=== PATIENT | male | born 1940 | race Caucasian/White ===

== ENCOUNTER 2018-10-19 12:03 | Emergency (ER) | payer OTHER, SELFPAY ==
[2018-10-19 12:05] VITALS: BP 144/61; PULSE 50; RESP 12; TEMP 35.8; O2SAT 98
--- NOTE | 2018-10-19 12:09 | DI.CT.S_ITS ---
PROCEDURE: CT HEAD/BRAIN WO CON INDICATIONS: mental status change, found down, possible trauma TECHNIQUE: Noncontrast 4.5 mm thick angled axial sections acquired from the foramen magnum to the vertex, with coronal and sagittal reformats. For radiation dose reduction, the following was used: automated exposure control, adjustment of mA and/or kV according to patient size. COMPARISON: None. FINDINGS: Image quality: Excellent. CSF spaces: Basal cisterns are patent. No extra-axial fluid collections. The ventricles are symmetric in size and shape. Brain: No intracranial bleeds or masses. There is cerebral volume loss for age, with resultant ventricular and sulcal prominence. There are periventricular and deep white matter chronic small vessel ischemic changes. There is intracranial internal carotid artery atherosclerosis. Skull and face: Calvarium and visualized facial bones appear intact, without suspicious lesions. Sinuses: Visualized sinuses and mastoids are clear. IMPRESSION: No acute intracranial process. Dictated by: Samuel Ruiz M.D. on 10/19/2018 at 12:34 Approved by: Samuel Ruiz M.D. on 10/19/2018 at 12:37
--- NOTE | 2018-10-19 12:09 | DI.RAD.S_ITS ---
PROCEDURE: XR CHEST 1V INDICATIONS: found down TECHNIQUE: One view of the chest was acquired. COMPARISON: [facility], CT, CT HEAD/BRAIN WO CON, 10/19/2018, 12:24. FINDINGS: Surgical changes and devices: None. Lungs and pleura: An incomplete inspiratory result is noted, causing a crowded appearance to the lung markings. No focal infiltrates are seen. No pneumothorax or significant pleural effusions are seen. Mediastinum: Mediastinal contours appear normal. Heart size is normal. Bones and chest wall: No suspicious bony lesions. Age-appropriate bony degenerative changes are seen. Overlying soft tissues appear unremarkable. Bilateral nipple shadows can be seen. IMPRESSION: Normal portable chest for age. Dictated by: Mingo Altman M.D. on 10/19/2018 at 11:45 Approved by: Mingo Altman M.D. on 10/19/2018 at 11:48
[2018-10-19] MEDS: DEXTROSE 50 % IN WATER 25 GM/50 ML SYRINGE IV (12:10)
[2018-10-19] MEDS: SODIUM CHLORIDE 0.9% 1,000 ML 150 ML IV (12:18)
[2018-10-19 12:20] VITALS: BP 161/64
[2018-10-19 12:59] VITALS: BP 141/56; PULSE 48; RESP 16; O2SAT 100
[2018-10-19] MEDS: TET,DIPH,PERTUSS(ACELL),VAC/PF 0.5 ML SYRINGE IM (13:16)
[2018-10-19 13:27] LABS: Add Manual Diff / Slide Review NO; Basophils Absolute Auto 0 /uL (0-100); Basophils Percent Auto 0.6 % (0-2); Eosinophils Absolute Auto 400 /uL (0-450); Eosinophils Percent Auto 5.8 % (2-4); Hematocrit 46.1 % (41-53); Hemoglobin 15.3 g/dL (13.5-17.5); Lymphocytes Absolute Auto 900 /uL (1100-4500); Lymphocytes Percent Auto 14.5 % (25-40); Mean Corpuscular HGB Conc 33.2 % (30-36); Mean Corpuscular Hemoglobin 31.7 PG (26-34); Mean Corpuscular Volume 95.7 fL (80-100); Monocytes Absolute Auto 600 /uL (0-900); Monocytes Percent Auto 8.7 % (3-14); Neutrophils Absolute Auto 4600 /uL (1500-7000); Neutrophils Percent Auto 70.4 % (50-75); Platelet Count 161 X10^3/uL (150-400); Red Blood Cell Count 4.82 X10^6/uL (4.5-5.9); Red Cell Distribution Width 13.9 % (11.6-14.8); White Blood Cell Count 6.5 X10^3/uL (4.5-11.0)
[2018-10-19 13:39] LABS: INR 1.1 (0.9-1.3); Prothrombin Time 12.2 SECONDS (10.1-12.7)
[2018-10-19 13:41] LABS: PTT Partial Thromboplastin Tim 36 SECONDS (26.4-36.2)
--- NOTE | 2018-10-19 13:47 | PC.NURSE ---
skin tear on bilateral arms and abrasion on bilateral face. pt denies on anticoagulants
[2018-10-19 13:48] LABS: Acetaminophen < 10 ug/mL (10-30); Alanine Aminotransferase 35 IU/L (21-72); Albumin 4.1 g/dL (3.5-5.0); Albumin Globulin Ratio 1.4 (1.0-2.8); Alkaline Phosphatase 110 U/L (38-126); Aspartate Aminotransferase 49 IU/L (17-59); BUN Creatinine Ratio 28.8 (6-22); Bilirubin Total 0.7 mg/dL (0.2-1.3); Blood Urea Nitrogen 49 mg/dL (9-20); Calcium 9.2 mg/dL (8.4-10.2); Carbon Dioxide 20 mmol/L (22-32); Chloride 111 mmol/L (98-107); Creatine Kinase 212 U/L (55-170); Estimated Glomerular Filt Rate 39.3 mL/min (>60); Ethanol (ETOH) < 10 mg/dL; Globulin 2.9 g/dL (1.7-4.1); Glucose 105 mg/dL (80-110); HEMOLYSIS < 15 (0-50); Sodium 141 mmol/L (137-145)
[2018-10-19 13:50] LABS: Lactate (Lactic Acid) 1.3 mmol/L (0.7-2.1)
[2018-10-19 13:51] LABS: Potassium 5.4 mmol/L (3.4-5.1)
[2018-10-19 14:00] LABS: Troponin I < 0.012 ng/mL (0.01-0.034)
[2018-10-19 14:04] LABS: Prolactin 15.5 ng/mL (3.7-17.9)
--- NOTE | 2018-10-19 14:11 | PC.NURSE ---
Pt HR in 40's but denies chest pain, sob, dizziness. He c/o L trepezius discomfort with palpation and reports gets dizzy when he turns over to side. Pt denies any change in medications, doses and has been taking his medications as scheduled. He takes Metoprolol 50mg daily, Metformin 500mg Q AM and Humilin 40 Units BID which he had taken this morning. According to his per conversation with the daugher on the phone, he has new medication for his diabetes. maintenance technician 3rd shift is in process to verify his medication picker and sorter load and unload from [facility].
[2018-10-19 14:29] LABS: Thyroid Stimulating Hormone 2.61 uIU/mL (0.47-4.68)
[2018-10-19 14:40] VITALS: BP 162/52; PULSE 50; RESP 20; O2SAT 99
--- NOTE | 2018-10-19 15:05 | ED_ITS ---
HPI - General Adult General Chief complaint: Unresponsive Stated complaint: LOW BLOOD SUGAR VERY SLEEPY FALL Time Seen by Provider: 10/19/18 12:05 Source: patient, family and EMS Mode of arrival: EMS Limitations: no limitations History of Present Illness HPI narrative: A 78-year-old male with history of hypertension and diabetes presents to the emergency department by EMS for evaluation of altered mental status and a witnessed fall. EMS was activated by a friend of the patient who said he was walking toward her acting a bit off and then gradually slumped to the ground. On their arrival they found him acting abnormally and noted his blood sugar to be in the 30s. He denies missing any meals and states he is taking the normal dosing regimen of his diabetic medications. Onset (ago): hour(s) Related Data Home Medications Medication Instructions Recorded Confirmed aspirin 81 mg PO QPM #0 03/28/06 10/19/18 Focus Factor 1 dose PO DAILY 10/19/18 10/19/18 glipizide 10 mg PO DAILY 10/19/18 10/19/18 insulin NPH isoph U-100 human 40 units SUBCUT BID 10/19/18 10/19/18 [Humulin N NPH U-100 Insulin] lisinopril 10 mg PO QPM 10/19/18 10/19/18 metoprolol succinate 50 mg PO DAILY 10/19/18 10/19/18 pravastatin 40 mg PO QPM 10/19/18 10/19/18 Allergies Allergy/AdvReac Type Severity Reaction Status Date / Time No Known Drug Allergies Allergy Verified 10/19/18 13:16 Review of Systems Constitutional Denies chills, Denies fever(s), Denies lethargy and Reports weakness Eyes Denies change in vision, Denies eye discharge, Denies irritation and Denies loss of vision ENT Ears, Nose, Mouth, and Throat: Denies change in voice, Denies neck pain and Denies sore throat Cardiovascular Denies chest pain, Denies irregular heart rhythm, Denies lightheadedness, Denies palpitations, Denies dyspnea, Denies dyspnea on exertion and Denies orthopnea Respiratory Denies cough, Denies dyspnea, Denies dyspnea on exertion and Denies wheezing Gastrointestinal Gastrointestinal: Denies abdominal pain, Denies change in bowel habits, Denies diarrhea, Denies nausea and Denies vomiting Genitourinary Denies hematuria, Denies flank pain, Denies urinary incontinence and Denies urinary urgency Musculoskeletal Denies neck pain Integumentary/Breasts Denies pruritus, Denies erythema, Denies rash and Denies wounds Neurologic Denies confusion, Denies loss of vision and Reports weakness Psychiatric Denies anxiety, Denies confusion, Denies depression, Denies homicidal ideation and Denies suicidal ideation Endocrine Denies palpitations Hematologic/Lymphatic Denies easy bruising Allergic/Immunologic Denies wheezing PFSH Social History Smoking Status: Never smoker Social History Smoking Status: Never smoker Exam Narrative Exam Narrative: GENERAL: 78-year-old male appears stated age, alert oriented x3, GCS 15 HEAD: Minor abrasion to left brow, no laceration, no swelling or suggestion of skull fracture EYES: Pupils equal round and reactive. Extraocular motions intact. No scleral icterus. No injection or drainage. ENT: Nose without bleeding, purulent drainage or septal hematoma. Throat without erythema, tonsillar hypertrophy or exudate. Uvula midline. Airway patent. NECK: Trachea midline. No JVD or lymphadenopathy. Supple, nontender, no meningeal signs. CARDIOVASCULAR: Regular rate and rhythm without murmurs, gallops, or rubs. RESPIRATORY: Clear to auscultation. Breath sounds equal bilaterally. No wheezes, rales, or rhonchi. GASTROINTESTINAL: Abdomen soft, non-tender, nondistended. No hepato- splenomegaly, or palpable masses. No guarding. EXTREMITIES: No clubbing, cyanosis, or edema. No joint tenderness, effusion, or edema noted. BACK: Nontender without deformity or crepitance. No flank tenderness. NEURO: AOx3. SKIN: No rash or erythema. Initial Vital Signs Initial Vital Signs: Vital Signs Temperature 96.5 F L 10/19/18 12:05 Pulse Rate 50 L 10/19/18 12:05 Respiratory Rate 12 10/19/18 12:05 Blood Pressure 144/61 H 10/19/18 12:05 Pulse Oximetry 98 10/19/18 12:05 Course Course Narrative: 78-year-old male alert and oriented and at baseline from the moment he received an amp of D50 until discharge. His sugar did slowly dip into the 70s and patient was administered a sandwich and some juice. He denied dizziness, lightness or shortness. She denies any chest pain. He denied any palpitations. He was ambulatory without any difficulty. Patient's heart rate largely in the 50s and 60s which is his baseline but did dip into the 30s and 40s on a few occasions. At no point was he is symptomatic with these bradycardic episodes. He denies any dizziness, lightheadedness or shortness of breath Orders Ordered: ED Orders 10/19/18 12:09 CT head/brain wo con Stat XR chest 1V Stat 10/19/18 12:18 EKG-12 Lead Stat 10/19/18 13:17 Acetaminophen Stat Blood Culture Stat Complete Blood Count AUTO DIFF Stat Comprehensive Metabolic Panel Stat Creatine Kinase Stat Ethanol (ETOH) Stat Lactate (Lactic Acid) Stat Partial Thromboplastin Time Stat Prolactin Stat Prothrombin Time INR Stat Salicylate Stat Thyroid Stimulating Hormone Stat Troponin I Stat 10/19/18 14:24 EKG-12 Lead Stat 10/19/18 15:37 Urine Culture Stat Urine Drug Screen, Rapid Stat Discontinued Medications Dextrose (D50w) 25 gm IV NOW ONE Stop: 10/19/18 12:09 Last Admin: 10/19/18 12:10 Dose: 25 gm Diphtheria/Tetanus/Acell Pertussis (Adacel) 0.5 ml IM .ONCE ONE Stop: 10/19/18 13:15 Last Admin: 10/19/18 13:16 Dose: 0.5 ml Sodium Chloride (Normal Saline 0.9%) 1,000 mls @ 150 mls/hr IV CONT TASHA Last Infusion: 10/19/18 16:38 Dose: 0 mls/hr Admin: 10/19/18 12:18 Dose: 150 mls/hr Consultations Consultation #1: Called to patient's primary care provider to review old records. He states he has an opening in a few days in the office and would like to see him. Recommendation is to hold metoprolol. Vital Signs - 8 hr 10/19/18 12:20 10/19/18 12:59 10/19/18 14:40 Pulse Rate 48 L 50 L Respiratory Rate 16 20 Blood Pressure Blood Pressure [Right Arm] 161/64 H 141/56 H 162/52 H Pulse Oximetry 100 99 10/19/18 16:38 Pulse Rate 62 Respiratory Rate 18 Blood Pressure 138/53 L Blood Pressure [Right Arm] Pulse Oximetry 95 Medical Decision Making Lab Data Result diagrams: 10/19/18 13:17 10/19/18 13:17 Lab Results 10/19/18 10/19/18 10/19/18 Range/Units 13:17 13:17 13:17 WBC 6.5 (4.5-11.0) X10^3/uL RBC 4.82 (4.5-5.9) X10^6/uL Hgb 15.3 (13.5-17.5) g/dL Hct 46.1 (41-53) % MCV 95.7 (80-100) fL MCH 31.7 (26-34) PG MCHC 33.2 (30-36) % RDW 13.9 (11.6-14.8) % Plt Count 161 (150-400) X10^3/uL Neut % (Auto) 70.4 (50-75) % Lymph % (Auto) 14.5 L (25-40) % [place]eadle % (Auto) 8.7 (3-14) % Eos % (Auto) 5.8 H (2-4) % Baso % (Auto) 0.6 (0-2) % Neut # (Auto) 4600 (1338-0322) /uL Lymph # (Auto) 900 L (6918-6125) /uL [place]eadle # (Auto) 600 (0-900) /uL Eos # (Auto) 400 (0-450) /uL Baso # (Auto) 0 (0-100) /uL PT 12.2 (10.1-12.7) SECONDS INR 1.1 (0.9-1.3) APTT 36 (26.4-36.2) SECONDS Sodium 141 (137-145) mmol/L Potassium 5.4 H (3.4-5.1) mmol/L Chloride 111 H (98-107) mmol/L Carbon Dioxide 20 L (22-32) mmol/L BUN 49 H (9-20) mg/dL Creatinine 1.70 H (0.66-1.25) mg/dL Estimated GFR 39.3 L (>60) mL/min BUN/Creatinine Ratio 28.8 H (6-22) Glucose 105 (80-110) mg/dL Lactate (0.7-2.1) mmol/L Calcium 9.2 (8.4-10.2) mg/dL Total Bilirubin 0.7 (0.2-1.3) mg/dL AST 49 (17-59) IU/L ALT 35 (21-72) IU/L Alkaline Phosphatase 110 (38-126) U/L Total Creatine Kinase 212 H (55-170) U/L Troponin I < 0.012 (0.01-0.034) ng/mL Total Protein 7.0 (6.3-8.2) g/dL Albumin 4.1 (3.5-5.0) g/dL Globulin 2.9 (1.7-4.1) g/dL Albumin/Globulin Ratio 1.4 (1.0-2.8) TSH (0.47-4.68) uIU/mL Prolactin 15.5 (3.7-17.9) ng/mL Salicylates 1.0 (<20) mg/dL Urine Opiates Screen (Negative) Ur Oxycodone Screen (Negative) Urine Methadone Screen (Negative) Acetaminophen < 10 L (10-30) ug/mL Ur Barbiturates Screen (Negative) U Tricyclic Antidepress (Negative) Ur Phencyclidine Scrn (Negative) Ur Amphetamines Screen (Negative) U Methamphetamines Scrn (Negative) Ur MDMA Scrn (Ecstasy) (Negative) U Benzodiazepines Scrn (Negative) Urine Cocaine Screen (Negative) U Marijuana (THC) Screen (Negative) Ethyl Alcohol < 10 mg/dL 10/19/18 10/19/18 10/19/18 Range/Units 13:17 13:17 15:37 WBC (4.5-11.0) X10^3/uL RBC (4.5-5.9) X10^6/uL Hgb (13.5-17.5) g/dL Hct (41-53) % MCV (80-100) fL MCH (26-34) PG MCHC (30-36) % RDW (11.6-14.8) % Plt Count (150-400) X10^3/uL Neut % (Auto) (50-75) % Lymph % (Auto) (25-40) % Beadle % (Auto) (3-14) % Eos % (Auto) (2-4) % Baso % (Auto) (0-2) % Neut # (Auto) (2851-0905) /uL Lymph # (Auto) (0070-1023) /uL Beadle # (Auto) (0-900) /uL Eos # (Auto) (0-450) /uL Baso # (Auto) (0-100) /uL PT (10.1-12.7) SECONDS INR (0.9-1.3) APTT (26.4-36.2) SECONDS Sodium (137-145) mmol/L Potassium (3.4-5.1) mmol/L Chloride (98-107) mmol/L Carbon Dioxide (22-32) mmol/L BUN (9-20) mg/dL Creatinine (0.66-1.25) mg/dL Estimated GFR (>60) mL/min BUN/Creatinine Ratio (6-22) Glucose (80-110) mg/dL Lactate 1.3 (0.7-2.1) mmol/L Calcium (8.4-10.2) mg/dL Total Bilirubin (0.2-1.3) mg/dL AST (17-59) IU/L ALT (21-72) IU/L Alkaline Phosphatase (38-126) U/L Total Creatine Kinase (55-170) U/L Troponin I (0.01-0.034) ng/mL Total Protein (6.3-8.2) g/dL Albumin (3.5-5.0) g/dL Globulin (1.7-4.1) g/dL Albumin/Globulin Ratio (1.0-2.8) TSH 2.61 (0.47-4.68) uIU/mL Prolactin (3.7-17.9) ng/mL Salicylates (<20) mg/dL Urine Opiates Screen Positive H (Negative) Ur Oxycodone Screen Positive H (Negative) Urine Methadone Screen Negative (Negative) Acetaminophen (10-30) ug/mL Ur Barbiturates Screen Negative (Negative) U Tricyclic Antidepress Negative (Negative) Ur Phencyclidine Scrn Negative (Negative) Ur Amphetamines Screen Negative (Negative) U Methamphetamines Scrn Negative (Negative) Ur MDMA Scrn (Ecstasy) Negative (Negative) U Benzodiazepines Scrn Negative (Negative) Urine Cocaine Screen Negative (Negative) U Marijuana (THC) Screen Negative (Negative) Ethyl Alcohol mg/dL Point of Care Testing Glucose POC 86 Point of care testing: Point of Care Testing Glucose POC 86 MDM Narrative Medical decision making narrative: 78-year-old male presents with altered mental status and a blood glucose in the 30s. Administration of glucose resulted in near complete resolution of symptoms immediately and he remained that way for the duration of his visit. He denies any change in diet or diabetic regimen and primary care provider confirms this. Patient has a few episodes of heart rate dipping into the 30s and 40s but remains completely asymptomatic of this. First degree block noted on EKG but otherwise well. Patient will hold his metoprolol until seen by PCP in a few days. He is given extensive return precautions and has multiple trustworthy family members that he lives with, 1 of which is at the bedside. They have had their questions answered to apparent satisfaction, have understanding of diagnosis, return precautions, discharge plan and agree with the above Discharge Plan Departure Patient Disposition: Home Clinical Impression: Hypoglycemia, Bradycardia Discharge Date/Time: 10/19/18 16:39 Interventions: ED Discharge Assessment Last Done: 10/19/18 16:38 Instructions: DI for Hypoglycemia, DI for Bradycardia Activity Restrictions/Additional Instructions: *You have been diagnosed with [ acute hypoglycemia and bradycardia ] *What to do: *STOP TAKING METOPROLOL *Follow up with Dr. Ferrell on Thursday as planned *Return to ER if you should have any new, worsening or concerning symptoms Prescriptions: No Action aspirin 81 mg Tablet,Delayed Release (Dr/Ec) 81 mg PO QPM Qty: 0 RF: 0 pravastatin 40 mg Tablet 40 mg PO QPM RF: 0 metoprolol succinate 50 mg Tablet Extended Release 24 Hr 50 mg PO DAILY RF: 0 glipizide 10 mg Tablet 10 mg PO DAILY RF: 0 lisinopril 10 mg Tablet 10 mg PO QPM RF: 0 Humulin N NPH U-100 Insulin 100 unit/mL Suspension 40 units subcut BID RF: 0 Focus Factor 1 dose PO DAILY RF: 0 Referrals: Mitchell Ferrell MD [Primary Care Provider] -
[2018-10-19 16:24] LABS: Urine Amphetamines Negative (Negative); Urine Barbiturates Negative (Negative); Urine Benzodiazepines Negative (Negative); Urine Cocaine Negative (Negative); Urine MDMA Negative (Negative); Urine Methadone Negative (Negative); Urine Methamphetamines Negative (Negative); Urine Morphine/Opi cutoff 2000 Positive (Negative); Urine Oxycodone Positive (Negative); Urine Phencyclidine Negative (Negative); Urine Tetrahydrocannabinol Negative (Negative); Urine Tricyclic Antidepressant Negative (Negative)
[2018-10-19 16:38] VITALS: BP 138/53; PULSE 62; RESP 18; O2SAT 95
== END 2018-10-19 16:39 | disposition home or self-care (01) ==
PROVIDERS: Emergency Provider Emergency Medicine; Family Provider Family Medicine; PCP Family Medicine
DX: E16.2 Hypoglycemia, unspecified (principal); R00.1 Bradycardia, unspecified; W18.30XA Fall on same level, unspecified, initial encounter; Z23 Encounter for immunization; Z79.82 Long term (current) use of aspirin
CPT/HCPCS: 36415; 70450; 71045; 80053; 80305; 80320; 80329; 82550; 82962; 83605; 84146; 84443; 84484; 85025; 85610; 85730; 87040; 87086; 90471; 93005; 93010; 96361; 96374; 99283; 99285; 99291; 90715; G0480

== ENCOUNTER 2019-08-08 11:44 | Emergency (ER) | payer OTHER, SELFPAY ==
[2019-08-08 11:45] VITALS: BP 168/70; PULSE 47; RESP 20; TEMP 36.8; O2SAT 94; BMI 24.3
--- NOTE | 2019-08-08 12:18 | ED_ITS ---
HPI - General Adult General Chief complaint: Syncope Stated complaint: possible mild stroke Time Seen by Provider: 08/08/19 11:55 Source: patient and family Mode of arrival: Ambulatory Limitations: no limitations History of Present Illness HPI narrative: Patient is a 79-year-old male. Difficult to obtain a history from the patient because he is joking about every question that I ask. When I asked if he had chest pain he would state ?do you want me to have chest pain ?. When asked if he had lower extremity swelling he said ?do you want me to have lower extremity swelling ?. From what I did given the patient he was drinking coffee this morning he was going to sit down and he became lightheaded. There is no reports that the patient actually passed out. He denies any chest pain or shortness of breath. When I asked him what happened him this morning he said ?I dropped my coffee ?he obviously does not want to be in the emergency department. He stated that his son's made him come. He states that he has had issues with hypoglycemia in the past. He states this felt like 1 of those issues. The time of my evaluation patient reported no symptoms. Related Data Home Medications Medication Instructions Recorded Confirmed aspirin 81 mg PO QPM #0 03/28/06 10/19/18 Focus Factor 1 dose PO DAILY 10/19/18 10/19/18 glipizide 10 mg PO DAILY 10/19/18 08/08/19 insulin NPH isoph U-100 human 40 units SUBCUT BID 10/19/18 10/19/18 [Humulin N NPH U-100 Insulin] lisinopril 10 mg PO QPM 10/19/18 08/08/19 metoprolol succinate 50 mg PO DAILY 10/19/18 10/19/18 pravastatin 40 mg PO QPM 10/19/18 08/08/19 Allergies Allergy/AdvReac Type Severity Reaction Status Date / Time No Known Drug Allergies Allergy Verified 10/19/18 13:16 Review of Systems Constitutional Constitutional: Denies fatigue, Denies headache(s) and Denies weakness Eyes Eyes: Denies change in vision ENT Ears, Nose, Mouth, and Throat: Reports dizziness, Denies headache(s) and Reports disequilibrium Cardiovascular Cardiovascular: Denies chest pain, Denies syncope and Denies dyspnea Respiratory Respiratory: Denies cough and Denies dyspnea Gastrointestinal Gastrointestinal: Denies abdominal pain, Denies nausea and Denies vomiting Musculoskeletal Musculoskeletal: Denies myalgias and Denies arthralgias Integumentary/Breasts Skin/Breast: Denies rash Neurologic Neurologic: Reports confusion, Reports dizziness, Denies syncope, Denies headache(s), Reports disequilibrium and Denies weakness Psychiatric Psychiatric: Reports confusion Endocrine Endocrine: Denies fatigue Hematologic/Lymphatic Hematologic/Lymphatic: Denies easy bleeding and Denies easy bruising Patient History Medical History Diabetes (Acute) Social History Smoking Status: Never smoker Smoking Status: Never smoker alcohol intake frequency: 0-2 drinks per day Substance Use Type: does not use Exam Initial Vital Signs Initial Vital Signs: Vital Signs Temperature 98.2 F 08/08/19 11:45 Pulse Rate 47 L 08/08/19 11:45 Respiratory Rate 20 08/08/19 11:45 Blood Pressure 168/70 H 08/08/19 11:45 Pulse Oximetry 94 08/08/19 11:45 Const General: comfortable Limitations: mental status not altered HENMT Head: normal to inspection and normocephalic Resp Effort & Inspection: normal respiratory effort Auscultation: clear to auscultation bilaterally Cardio Rate: bradycardic Rhythm: regular rhythm Pulses: radial pulses present Skin Lesions: no lesions Rashes: no rashes Neuro General: alert, awake and oriented x3 Cognition: normal cognition Speech: speech normal Gait: normal gait Extrem General: normal to inspection and capillary refill normal Scores GCS Jorge coma scale eye opening: Spontaneous Henry coma scale verbal response: Orientated Jorge coma scale motor response: Obey commands Jorge coma scale total score: 15 Course Orders Ordered: ED Orders 08/08/19 11:56 EKG-12 Lead Stat 08/08/19 12:32 Basic Metabolic Panel Stat Complete Blood Count AUTO DIFF Stat Vital Signs Vital signs: Vital Signs - 8 hr 08/08/19 11:45 08/08/19 12:26 08/08/19 12:31 Temperature 98.2 F Pulse Rate 47 L 50 L 47 L Respiratory Rate 20 31 H 20 Blood Pressure 168/70 H Blood Pressure [Right Arm] 196/78 H 161/71 H Pulse Oximetry 94 99 99 Medical Decision Making Lab Data Lab results reviewed: Yes I reviewed the patient's lab results. Result diagrams: 08/08/19 12:32 08/08/19 12:32 Labs: Lab Results 08/08/19 08/08/19 Range/Units 12:32 12:32 WBC 5.6 (4.5-11.0) X10^3/uL RBC 4.78 (4.5-5.9) X10^6/uL Hgb 15.6 (13.5-17.5) g/dL Hct 45.2 (41-53) % MCV 94.5 (80-100) fL MCH 32.5 (26-34) PG MCHC 34.4 (30-36) % RDW 14.6 (11.6-14.8) % Plt Count 157 (150-400) X10^3/uL Neut % (Auto) 52.5 (50-75) % Lymph % (Auto) 31.9 (25-40) % [place] % (Auto) 8.1 (3-14) % Eos % (Auto) 6.5 H (2-4) % Baso % (Auto) 1.0 (0-2) % Neut # (Auto) 2900 (6089-1911) /uL Lymph # (Auto) 1800 (4148-1379) /uL [place] # (Auto) 500 (0-900) /uL Eos # (Auto) 400 (0-450) /uL Baso # (Auto) 100 (0-100) /uL Sodium 141 (137-145) mmol/L Potassium 6.0 H (3.4-5.1) mmol/L Chloride 114 H (98-107) mmol/L Carbon Dioxide 16 L (22-32) mmol/L BUN 44 H (9-20) mg/dL Creatinine 1.80 H (0.66-1.25) mg/dL Estimated GFR 36.7 L (>60) mL/min BUN/Creatinine Ratio 24.4 H (6-22) Glucose 95 (80-110) mg/dL Calcium 9.3 (8.4-10.2) mg/dL Point of Care Testing Glucose POC 139 Point of care testing: Point of Care Testing Glucose POC 139 ECG Data Attestation: I personally reviewed and interpreted this ECG as follows: Prior ECG tracings: not available for review Interpretation: Sinus bradycardia Ventricular rate of 48 First degree AV block as needed oval 218 milliseconds Normal QTC No ST T wave changes MDM Narrative Medical decision making narrative: Patient now baseline neurologic status per family or at baseline. His labs are unremarkable. Has been maintaining his blood sugar. Ambulated around the emergency department without any problems. Is bradycardic on his EKG on the on the monitor however this did increase with movement. He does not seem to be symptomatic from it. Feel we can hold on further workup for now. I do suspect these symptoms related to hypoglycemic episode. He was given return precautions and follow-up instructions. He expressed understanding and agreement. Discharge Plan Departure Patient Disposition: Home Clinical Impression: Hypoglycemia, Pre-syncope Instructions: DI for Hypoglycemia Activity Restrictions/Additional Instructions: A recommend that you continue all of your medication as directed. Contact your primary provider for follow-up. Return to the emergency department for any new or worsening symptoms Prescriptions: No Action aspirin 81 mg Tablet,Delayed Release (Dr/Ec) 81 mg PO QPM Qty: 0 RF: 0 pravastatin 40 mg Tablet 40 mg PO QPM RF: 0 metoprolol succinate 50 mg Tablet Extended Release 24 Hr 50 mg PO DAILY RF: 0 glipizide 10 mg Tablet 10 mg PO DAILY RF: 0 lisinopril 10 mg Tablet 10 mg PO QPM RF: 0 Humulin N NPH U-100 Insulin 100 unit/mL Suspension 40 units subcut BID RF: 0 Focus Factor 1 dose PO DAILY RF: 0 Referrals: Bisi Shankar MD [Primary Care Provider] -
[2019-08-08 12:26] VITALS: BP 196/78; PULSE 50; RESP 31; O2SAT 99
[2019-08-08 12:31] VITALS: BP 161/71; PULSE 47; RESP 20; O2SAT 99
[2019-08-08 12:42] LABS: Add Manual Diff / Slide Review NO; Basophils Absolute Auto 100 /uL (0-100); Eosinophils Absolute Auto 400 /uL (0-450); Eosinophils Percent Auto 6.5 % (2-4); Hematocrit 45.2 % (41-53); Hemoglobin 15.6 g/dL (13.5-17.5); Lymphocytes Absolute Auto 1800 /uL (1100-4500); Lymphocytes Percent Auto 31.9 % (25-40); Mean Corpuscular HGB Conc 34.4 % (30-36); Mean Corpuscular Hemoglobin 32.5 PG (26-34); Mean Corpuscular Volume 94.5 fL (80-100); Monocytes Absolute Auto 500 /uL (0-900); Monocytes Percent Auto 8.1 % (3-14); Neutrophils Absolute Auto 2900 /uL (1500-7000); Neutrophils Percent Auto 52.5 % (50-75); Platelet Count 157 X10^3/uL (150-400); Red Blood Cell Count 4.78 X10^6/uL (4.5-5.9); Red Cell Distribution Width 14.6 % (11.6-14.8); White Blood Cell Count 5.6 X10^3/uL (4.5-11.0)
[2019-08-08 12:53] LABS: BUN Creatinine Ratio 24.4 (6-22); Blood Urea Nitrogen 44 mg/dL (9-20); Calcium 9.3 mg/dL (8.4-10.2); Carbon Dioxide 16 mmol/L (22-32); Chloride 114 mmol/L (98-107); Estimated Glomerular Filt Rate 36.7 mL/min (>60); Glucose 95 mg/dL (80-110); HEMOLYSIS 19 (0-50); Sodium 141 mmol/L (137-145)
--- NOTE | 2019-08-08 13:09 | PC.NURSE ---
pt ambulated without difficulty around emergency dept. steady gait. aware.
[2019-08-08 13:37] VITALS: BP 154/72; PULSE 42; RESP 15; O2SAT 100
== END 2019-08-08 13:52 | disposition home or self-care (01) ==
PROVIDERS: Emergency Provider Emergency Medicine; Family Provider Family Medicine; PCP Student in an Organized Health Care Education/Training Program
DX: E11.649 Type 2 diabetes mellitus with hypoglycemia without coma (principal); Z79.4 Long term (current) use of insulin; R55 Syncope and collapse; R00.1 Bradycardia, unspecified
CPT/HCPCS: 80048; 82962; 85025; 93005; 93010; 99283; 99284

== ENCOUNTER → 2020-04-27 11:27 | Outpatient (ROUT) | payer OTHER, SELFPAY ==
[2020-04-27 11:39] LABS: Add Manual Diff / Slide Review NO; Basophils Absolute Auto 100 /uL (0-100); Basophils Percent Auto 0.5 % (0-2); Eosinophils Absolute Auto 100 /uL (0-450); Eosinophils Percent Auto 0.4 % (2-4); Hematocrit 47.7 % (41-53); Hemoglobin 15.5 g/dL (13.5-17.5); Lymphocytes Absolute Auto 1800 /uL (1100-4500); Lymphocytes Percent Auto 10.6 % (25-40); Mean Corpuscular HGB Conc 32.5 % (30-36); Mean Corpuscular Hemoglobin 30.4 PG (26-34); Mean Corpuscular Volume 93.6 fL (80-100); Monocytes Absolute Auto 1700 /uL (0-900); Neutrophils Absolute Auto 13600 /uL (1500-7000); Neutrophils Percent Auto 78.5 % (50-75); Platelet Count 270 X10^3/uL (150-400); Red Blood Cell Count 5.09 X10^6/uL (4.5-5.9); Red Cell Distribution Width 13.7 % (11.6-14.8); White Blood Cell Count 17.3 X10^3/uL (4.5-11.0)
[2020-04-27 11:52] LABS: Alanine Aminotransferase 66 IU/L (<50); Albumin 3.7 g/dL (3.5-5.0); Albumin Globulin Ratio 0.9 (1.0-2.8); Alkaline Phosphatase 186 U/L (38-126); Aspartate Aminotransferase 113 IU/L (17-59); BUN Creatinine Ratio 26.5 (6-22); Bilirubin Total 2.1 mg/dL (0.2-1.3); Blood Urea Nitrogen 79 mg/dL (9-20); Calcium 9.2 mg/dL (8.4-10.2); Carbon Dioxide 15 mmol/L (22-32); Chloride 100 mmol/L (98-107); Estimated Glomerular Filt Rate 20.4 mL/min (>60); Globulin 3.9 g/dL (1.7-4.1); Glucose 119 mg/dL (80-110); Lipase 181 U/L (23-300); Sodium 129 mmol/L (137-145); Total Protein 7.6 g/dL (6.3-8.2)
[2020-04-27 11:59] LABS: HEMOLYSIS 168 (0-50); Potassium 5.8 mmol/L (3.4-5.1)
== END ==
PROVIDERS: PCP Student in an Organized Health Care Education/Training Program; Visit Provider Student in an Organized Health Care Education/Training Program
DX: R07.89 Other chest pain (principal)
CPT/HCPCS: 80053; 83690; 85025

== ENCOUNTER → 2020-04-27 13:49 | Outpatient (CLI) | payer OTHER, SELFPAY | PROVIDERS: PCP Student in an Organized Health Care Education/Training Program; Referring Provider Student in an Organized Health Care Education/Training Program; Visit Provider Student in an Organized Health Care Education/Training Program | DX: R10.11 Right upper quadrant pain (principal); R19.01 Right upper quadrant abdominal swelling, mass and lump ==

== ENCOUNTER 2020-04-27 14:14 | Emergency (ER) | payer OTHER, SELFPAY ==
[2020-04-27] VITALS (16 sets, daily range): BP systolic 91–131; BP diastolic 49–62; PULSE 69–84; RESP 16–27; TEMP 36.5; O2SAT 91–98; BMI 23.7
--- NOTE | 2020-04-27 14:30 | ED_ITS ---
HPI - Abdominal Pain General Chief Complaint: Abdominal Pain Stated Complaint: Right upper quadrant abdominal swelling, mass Time Seen by Provider: 04/27/20 14:27 Source: patient Mode of arrival: Ambulatory History of Present Illness HPI narrative: Patient is a 80-year-old male presents from outpatient radiology. He initially is scheduled for CT abdomen and pelvis with contrast however based on his blood work done this morning he has a creatinine of 2.98 but cannot have contrast flow. He states that he is having right upper quadrant pain and has been having it for about 3 days. He denies any fever or chills. He actually says it is not in his right upper quadrant but more on his right lower ribs. No radiation of pain. No fever no chest pain or shortness of breath. He is overall an extremely poor historian. His initial white count this morning was 17 MD complaint: abdominal pain Onset (ago): day(s) (3) Related Data Home Medications Medication Instructions Recorded Confirmed aspirin 81 mg PO QPM #0 03/28/06 10/19/18 Focus Factor 1 dose PO DAILY 10/19/18 10/19/18 glipizide 10 mg PO DAILY 10/19/18 08/08/19 insulin NPH isoph U-100 human 40 units SUBCUT BID 10/19/18 10/19/18 [Humulin N NPH U-100 Insulin] lisinopril 10 mg PO QPM 10/19/18 08/08/19 metoprolol succinate 50 mg PO DAILY 10/19/18 10/19/18 pravastatin 40 mg PO QPM 10/19/18 08/08/19 Allergies Allergy/AdvReac Type Severity Reaction Status Date / Time No Known Drug Allergies Allergy Verified 10/19/18 13:16 Review of Systems Review of Systems ROS Unobtainable: All systems reviewed & are unremarkable except as noted in HPI and below Constitutional Constitutional: Denies chills, Denies fever(s), Denies lethargy and Denies weakness ENT Ears, Nose, Mouth, and Throat: Denies dizziness Cardiovascular Cardiovascular: Denies syncope, Denies dyspnea and Denies dyspnea on exertion Respiratory Respiratory: Denies cough, Denies dyspnea, Denies dyspnea on exertion and Denies wheezing Gastrointestinal Gastrointestinal: Reports as per HPI Musculoskeletal Musculoskeletal: Denies back pain and Denies myalgias Integumentary/Breasts Skin/Breast: Denies pruritus, Denies erythema, Denies rash and Denies wounds Neurologic Neurologic: Denies dizziness, Denies syncope and Denies weakness Allergic/Immunologic Allergic/Immunologic: Denies wheezing Patient History Medical History (Updated 04/27/20 @ 19:21 by Ashlyn Drummond DO) Diabetes Social History Smoking Status: Never smoker Smoking Status: Never smoker alcohol intake frequency: 0-2 drinks per day Substance Use Type: does not use Exam Initial Vital Signs Initial Vital Signs: Vital Signs Temperature 97.7 F 04/27/20 14:15 Pulse Rate 75 04/27/20 14:15 Respiratory Rate 16 04/27/20 14:15 Blood Pressure 131/62 04/27/20 14:15 Pulse Oximetry 95 04/27/20 14:15 GENERAL: Pleasant alert elderly male and in no acute distress. HEENT: Head atraumatic,EOMI, pupils reactive, face symmetric, moist mucous membranes CARDIOVASCULAR: Regular rate and rhythm without murmurs, rubs or gallops. RESPIRATORY: Breath sounds equal bilaterally, no wheezes rales or rhonchi. Slightly tender on his right anterior ribs ABDOMEN: Soft, no right upper quadrant tenderness no guarding or rebound EXTREMITIES: Normal range of motion, no clubbing or edema. Neurovascularly intact NEUROLOGICAL: [employer] strength equal bilaterally no focal deficits SKIN: Warm, dry, no laceration, no petechiae, no rashes or lesions. Course Orders Ordered: ED Orders 04/27/20 14:38 US abdomen limited Stat XR chest 1V Stat EKG-12 Lead Stat 04/27/20 15:05 Complete Blood Count AUTO DIFF Stat Comprehensive Metabolic Panel Stat Lactate (Lactic Acid) Stat Procalcitonin Stat Troponin & CK Cardiac Panel Stat 04/27/20 15:44 Blood Culture Stat 04/27/20 16:17 CT abdomen pelvis wo con Stat 04/27/20 16:19 Urinalysis and Microscopic Stat 04/27/20 16:36 COVID19 Stat 04/27/20 17:21 Troponin I Stat Sodium Chloride (Normal Saline 0.9%) 1,000 mls @ 150 mls/hr IV CONT TASHA Last Admin: 04/27/20 18:26 Dose: 150 mls/hr Documented by: RMARTIN Dextrose (D10w) 1,000 mls @ 150 mls/hr IV CONT TASHA Last Admin: 04/27/20 18:47 Dose: 150 mls/hr Documented by: DAHLIA Discontinued Medications Dextrose (Dextrose 50 % In Water 25 Gm/50 Ml Syringe) 25 gm IV NOW ONE Stop: 04/27/20 15:36 Last Admin: 04/27/20 15:39 Dose: 25 gm Documented by: [email or web address] Dextrose (Dextrose 50 % In Water 25 Gm/50 Ml Syringe) 25 gm IV NOW ONE Stop: 04/27/20 18:42 Last Admin: 04/27/20 18:45 Dose: 25 gm Documented by: DAHLIA Piperacillin/Tazobactam/Dextrose (Zosyn) 3.375 gm in 50 mls @ 100 mls/hr IV NOW ONE Stop: 04/27/20 15:48 Last Infusion: 04/27/20 16:19 Dose: 0 mls/hr Documented by: Admin: 04/27/20 15:37 Dose: 100 mls/hr Documented by: DAHLIA Sodium Chloride (Normal Saline 0.9%) 1,000 mls @ 1,000 mls/hr IV BOLUS ONE Stop: 04/27/20 16:27 Last Infusion: 04/27/20 17:31 Dose: 0 mls/hr Documented by: Admin: 04/27/20 15:33 Dose: 1,000 mls/hr Documented by: DAHLIA Lactated Ringer's (Lactated Ringers) 1,000 mls @ 1,000 mls/hr IV BOLUS ONE Stop: 04/27/20 18:21 Last Infusion: 04/27/20 18:54 Dose: 0 mls/hr Documented by: Admin: 04/27/20 17:27 Dose: 1,000 mls/hr Documented by: DAHLIA Morphine Sulfate (Morphine 2 Mg/Ml Inj) 2 mg IV NOW ONE Stop: 04/27/20 14:40 Last Admin: 04/27/20 15:00 Dose: 2 mg Documented by: DAHLIA Vital Signs Vital signs: Vital Signs - 8 hr 04/27/20 14:15 04/27/20 15:07 04/27/20 15:30 Temperature 97.7 F Pulse Rate 75 77 84 Respiratory Rate 16 20 22 Blood Pressure 131/62 Pulse Oximetry 95 98 95 04/27/20 15:48 04/27/20 16:00 04/27/20 16:14 Temperature Pulse Rate 79 80 71 Respiratory Rate 20 26 H 27 H Blood Pressure 125/52 L 91/49 L 109/55 L Pulse Oximetry 96 96 97 04/27/20 16:30 04/27/20 16:32 04/27/20 17:00 Temperature Pulse Rate 69 78 Respiratory Rate 20 24 Blood Pressure 112/51 L 100/55 L Pulse Oximetry 93 91 04/27/20 17:30 04/27/20 18:00 04/27/20 18:30 Temperature Pulse Rate 79 69 74 Respiratory Rate 24 24 24 Blood Pressure 110/60 120/55 L Pulse Oximetry 95 94 04/27/20 18:31 04/27/20 18:38 04/27/20 19:00 Temperature Pulse Rate 77 75 70 Respiratory Rate 24 24 26 H Blood Pressure 102/55 L 111/57 L Pulse Oximetry 95 96 MDM - Abdominal Pain Lab Data Attestation: I reviewed the patient's lab results. Result diagrams: 04/27/20 15:05 04/27/20 15:05 Labs: Lab Results 04/27/20 04/27/20 04/27/20 Range/Units 15:05 15:05 15:05 WBC 12.2 H (4.5-11.0) X10^3/uL RBC 4.97 (4.5-5.9) X10^6/uL Hgb 15.2 (13.5-17.5) g/dL Hct 46.2 (41-53) % MCV 92.9 (80-100) fL MCH 30.5 (26-34) PG MCHC 32.8 (30-36) % RDW 13.5 (11.6-14.8) % Plt Count 261 (150-400) X10^3/uL Neut % (Auto) 79.2 H (50-75) % Lymph % (Auto) 9.7 L (25-40) % Lassen % (Auto) 9.8 (3-14) % Eos % (Auto) 1.0 L (2-4) % Baso % (Auto) 0.3 (0-2) % Neut # (Auto) 9700 H (8950-1397) /uL Lymph # (Auto) 1200 (2873-6284) /uL Lassen # (Auto) 1200 H (0-900) /uL Eos # (Auto) 100 (0-450) /uL Baso # (Auto) 0 (0-100) /uL Sodium 129 L (137-145) mmol/L Potassium 5.0 (3.4-5.1) mmol/L Chloride 99 (98-107) mmol/L Carbon Dioxide 20 L (22-32) mmol/L BUN 83 H (9-20) mg/dL Creatinine 3.19 H (0.66-1.25) mg/dL Estimated GFR 18.9 L (>60) mL/min BUN/Creatinine Ratio 26.0 H (6-22) Glucose 45 L* (80-110) mg/dL Lactate (0.7-2.1) mmol/L Calcium 9.3 (8.4-10.2) mg/dL Total Bilirubin 1.4 H (0.2-1.3) mg/dL AST 89 H (17-59) IU/L ALT 63 H (<50) IU/L Alkaline Phosphatase 186 H (38-126) U/L Total Creatine Kinase 128 (55-170) U/L CK-MB (CK-2) 6.66 H (<2.37) ng/mL CK-MB (CK-2) Rel Index 5.2 H (1.5-5.0) % Troponin I 0.082 H (0.01-0.034) ng/mL Total Protein 7.7 (6.3-8.2) g/dL Albumin 3.9 (3.5-5.0) g/dL Globulin 3.8 (1.7-4.1) g/dL Albumin/Globulin Ratio 1.0 (1.0-2.8) Procalcitonin 5.59 H (<0.5) ng/mL COVID-19 PCR (Negative) 04/27/20 04/27/20 04/27/20 Range/Units 15:05 16:36 17:21 WBC (4.5-11.0) X10^3/uL RBC (4.5-5.9) X10^6/uL Hgb (13.5-17.5) g/dL Hct (41-53) % MCV (80-100) fL MCH (26-34) PG MCHC (30-36) % RDW (11.6-14.8) % Plt Count (150-400) X10^3/uL Neut % (Auto) (50-75) % Lymph % (Auto) (25-40) % Lassen % (Auto) (3-14) % Eos % (Auto) (2-4) % Baso % (Auto) (0-2) % Neut # (Auto) (7592-6810) /uL Lymph # (Auto) (2979-9065) /uL Lassen # (Auto) (0-900) /uL Eos # (Auto) (0-450) /uL Baso # (Auto) (0-100) /uL Sodium (137-145) mmol/L Potassium (3.4-5.1) mmol/L Chloride (98-107) mmol/L Carbon Dioxide (22-32) mmol/L BUN (9-20) mg/dL Creatinine (0.66-1.25) mg/dL Estimated GFR (>60) mL/min BUN/Creatinine Ratio (6-22) Glucose (80-110) mg/dL Lactate 1.5 (0.7-2.1) mmol/L Calcium (8.4-10.2) mg/dL Total Bilirubin (0.2-1.3) mg/dL AST (17-59) IU/L ALT (<50) IU/L Alkaline Phosphatase (38-126) U/L Total Creatine Kinase (55-170) U/L CK-MB (CK-2) (<2.37) ng/mL CK-MB (CK-2) Rel Index (1.5-5.0) % Troponin I 0.088 H (0.01-0.034) ng/mL Total Protein (6.3-8.2) g/dL Albumin (3.5-5.0) g/dL Globulin (1.7-4.1) g/dL Albumin/Globulin Ratio (1.0-2.8) Procalcitonin (<0.5) ng/mL COVID-19 PCR Negative (Negative) Point of care testing: Point of Care Testing Glucose POC [address] scan - abdomen/pelvis: Radiologist's Impression: PROCEDURE: CT ABDOMEN PELVIS WO CON INDICATIONS: ? liver/gallbladder TECHNIQUE: Noncontrast 5 mm thick sections acquired from the diaphragms to the symphysis. 5 mm coronal and sagittal reformats were then performed. For radiation dose reduc tion, the following was used: automated exposure control, adjustment of mA and/or kV according to patient size. COMPARISON: None. FINDINGS: Image quality: Excellent. ABDOMEN: Lung bases: Lung bases are clear. Heart size is normal. Coronary artery calcifications are present. Cirrhosis of the liver is seen. Gallbladder is distended and there is ill- defined gallbladder wall thickening and pericholecystic inflammatory appearance. No definite gallstones are seen. Pancreas is normal in contours. Spleen is normal in size. No adrenal nodules. No hydronephrosis. 2 cm nonspecific cystic appearing lesion involving the right kidney on image 44/2. Peritoneum and bowel: Questionable distal esophageal circumferential mural thickening. No free fluid or air. Colonic diverticulosis is seen without evidence of acute complication. Normal appendix. Nodes and vessels: No retroperitoneal or mesenteric adenopathy by size criteria. Aorta and inferior vena cava are normal in caliber. Miscellaneous: No ventral hernias. PELVIS: Genitourinary: Bladder wall thickness is normal. Bilateral small fat containing inguinal hernias. Bones: No suspicious bony lesions. No vertebral body compression fractures. IMPRESSION: Distended gallbladder with pericholecystic inflammation. Findings are most suspicious for acute cholecystitis. No definite radiopaque cholelithiasis is identified. Cirrhosis of liver Incidental colonic diverticulosis. Additional chronic and incidental findings as above. Dictated by: Samuel Ruiz M.D. on 04/27/2020 at 17:00 US - abdomen: Radiologist's Impression: PROCEDURE: US ABDOMEN LIMITED INDICATIONS: RIGHT UPPER QUADRANT PAIN TECHNIQUE: Real-time focused scanning was performed of the abdomen, with image documentation. COMPARISON: [facility], US, ABDOMEN COMPLETE, 05/07/2016, 16:46. [facility], CT, ABDOMEN/PELVIS WITH CONTRAST, 05/19/2016, 9:07. FINDINGS: Liver is normal in size and demonstrates coarse heterogeneous echotexture. No gallstones. There is gallbladder sludge. The gallbladder wall is irregular ly thickened measuring up to 7 mm. Pericholecystic fluid is present. Question of a hyperechoic structure adjacent to the gallbladder. The sonographic Bergeron's sign is positive. Common bile duct is normal in caliber. Pancreas is not visualized due to overlying bowel gas. IMPRESSION: 1. Abnormal appearance of the liver which demonstrates heterogeneous coarse echotexture suggesting chronic liver disease. Please correlate with liver enzymes. 2. No gallstones. There is gallbladder sludge, irregular wall thickening and pericholecystic fluid. There is positive sonographic Bergeron sign. Cannot exclude acalculous cholecystitis. 3. Question of echogenic structure or artifact adjacent to the gallbladder. Differential diagnosis include echogenic fluid (hematoma or abscess), mass or artifact. If clinically indicated, CT with contrast is recommended. 4. Normal caliber of common bile duct. 5. Nonvisualization of pancreas due to overlying bowel gas. The result was discussed with Dr. Drummond. Dictated by: Silvia Cheng M.D. on 04/27/2020 at 16:07 ECG Data Attestation: I personally reviewed and interpreted this ECG as follows: Interpretation: Normal sinus rhythm rate [address] changes PVC noted MDM Narrative Medical decision making narrative: Patient has leukocytosis elevated procalcitonin normal lactic acid, in presumed cholecystitis based on ultrasound. It does not appear to have cholelithiasis. Blood pressure does seem to be dropping given 2 boluses of saline. Never tachycardic. He is given 1 dose of Zosyn normal. Found have elevated creatinine baseline seems to be 1.3 -1.8 today it is 3. He has an indeterminate troponin it does not seem to be rising he has no EKG changes He is also found to be hypoglycemic he is given 1 amp of dextrose. Glucose again Drops his fluids or switch to D10. Patient is a [facility] patient spoken with the [facility] doctor at [facility] he has been accepted by Dr. Jim. Discharge Plan Departure Patient Disposition: [facility] Clinical Impression: Cholecystitis, Sepsis, Acute kidney injury Prescriptions: No Action aspirin 81 mg Tablet,Delayed Release (Dr/Ec) 81 mg PO QPM Qty: 0 RF: 0 pravastatin 40 mg Tablet 40 mg PO QPM RF: 0 metoprolol succinate 50 mg Tablet Extended Release 24 Hr 50 mg PO DAILY RF: 0 glipizide 10 mg Tablet 10 mg PO DAILY RF: 0 lisinopril 10 mg Tablet 10 mg PO QPM RF: 0 Humulin N NPH U-100 Insulin 100 unit/mL Suspension 40 units subcut BID RF: 0 Focus Factor 1 dose PO DAILY RF: 0 Referrals: Bisi Shankar MD [Primary Care Provider] -
--- NOTE | 2020-04-27 14:38 | DI.US.S_ITS ---
PROCEDURE: US ABDOMEN LIMITED INDICATIONS: RIGHT UPPER QUADRANT PAIN TECHNIQUE: Real-time focused scanning was performed of the abdomen, with image documentation. COMPARISON: [facility], US, ABDOMEN COMPLETE, 05/07/2016, 16:46. [facility], CT, ABDOMEN/PELVIS WITH CONTRAST, 05/19/2016, 9:07. FINDINGS: Liver is normal in size and demonstrates coarse heterogeneous echotexture. No gallstones. There is gallbladder sludge. The gallbladder wall is irregularly thickened measuring up to 7 mm. Pericholecystic fluid is present. Question of a hyperechoic structure adjacent to the gallbladder. The sonographic Bergeron's sign is positive. Common bile duct is normal in caliber. Pancreas is not visualized due to overlying bowel gas. IMPRESSION: 1. Abnormal appearance of the liver which demonstrates heterogeneous coarse echotexture suggesting chronic liver disease. Please correlate with liver enzymes. 2. No gallstones. There is gallbladder sludge, irregular wall thickening and pericholecystic fluid. There is positive sonographic Bergeron sign. Cannot exclude acalculous cholecystitis. 3. Question of echogenic structure or artifact adjacent to the gallbladder. Differential diagnosis include echogenic fluid (hematoma or abscess), mass or artifact. If clinically indicated, CT with contrast is recommended. 4. Normal caliber of common bile duct. 5. Nonvisualization of pancreas due to overlying bowel gas. The result was discussed with Dr. Drummond. Dictated by: Silvia Cheng M.D. on 04/27/2020 at 16:07 Approved by: Silvia Cheng M.D. on 04/27/2020 at 16:21
--- NOTE | 2020-04-27 14:38 | DI.RAD.S_ITS ---
PROCEDURE: XR CHEST 1V INDICATIONS: right sided chest pain TECHNIQUE: One view of the chest was acquired. COMPARISON: [facility], CR, XR CHEST 1V, 10/19/2018, 12:27. FINDINGS: Surgical changes and devices: None. Lungs and pleura: Lungs are clear. No pleural effusions or pneumothorax. Mild chronic right hemidiaphragm elevation. Mediastinum: Mediastinal contours appear normal. Heart size is normal. Bones and chest wall: No suspicious bony lesions. Overlying soft tissues appear unremarkable. IMPRESSION: No acute cardiopulmonary disease. Dictated by: Silvia Cheng M.D. on 04/27/2020 at 15:53 Approved by: Silvia Cheng M.D. on 04/27/2020 at 15:55
[2020-04-27] MEDS: MORPHINE 2 MG/ML INJ IV (15:00)
[2020-04-27 15:10] LABS: Add Manual Diff / Slide Review NO; Basophils Absolute Auto 0 /uL (0-100); Basophils Percent Auto 0.3 % (0-2); Eosinophils Absolute Auto 100 /uL (0-450); Hematocrit 46.2 % (41-53); Hemoglobin 15.2 g/dL (13.5-17.5); Lymphocytes Absolute Auto 1200 /uL (1100-4500); Lymphocytes Percent Auto 9.7 % (25-40); Mean Corpuscular HGB Conc 32.8 % (30-36); Mean Corpuscular Hemoglobin 30.5 PG (26-34); Mean Corpuscular Volume 92.9 fL (80-100); Monocytes Absolute Auto 1200 /uL (0-900); Monocytes Percent Auto 9.8 % (3-14); Neutrophils Absolute Auto 9700 /uL (1500-7000); Neutrophils Percent Auto 79.2 % (50-75); Platelet Count 261 X10^3/uL (150-400); Red Blood Cell Count 4.97 X10^6/uL (4.5-5.9); Red Cell Distribution Width 13.5 % (11.6-14.8); White Blood Cell Count 12.2 X10^3/uL (4.5-11.0)
[2020-04-27 15:24] LABS: Alanine Aminotransferase 63 IU/L (<50); Albumin 3.9 g/dL (3.5-5.0); Alkaline Phosphatase 186 U/L (38-126); Aspartate Aminotransferase 89 IU/L (17-59); Bilirubin Total 1.4 mg/dL (0.2-1.3); Blood Urea Nitrogen 83 mg/dL (9-20); Calcium 9.3 mg/dL (8.4-10.2); Carbon Dioxide 20 mmol/L (22-32); Chloride 99 mmol/L (98-107); Creatine Kinase 128 U/L (55-170); Estimated Glomerular Filt Rate 18.9 mL/min (>60); Globulin 3.8 g/dL (1.7-4.1); HEMOLYSIS < 15 (0-50); Sodium 129 mmol/L (137-145); Total Protein 7.7 g/dL (6.3-8.2)
[2020-04-27] MEDS: SODIUM CHLORIDE 0.9% 1,000 ML 1000 ML IV (15:33)
[2020-04-27 15:35] LABS: Glucose 45 mg/dL (80-110)
[2020-04-27 15:36] LABS: Troponin I 0.082 ng/mL (0.01-0.034)
[2020-04-27] MEDS: PIPERACILLIN-TAZO 3.375 GM/50 ML FROZ.PIGGY IV (15:37)
[2020-04-27 15:39] LABS: CKMB % Relative Index 5.2 % (1.5-5.0); Creatine Kinase MB 6.66 ng/mL (<2.37)
[2020-04-27] MEDS: DEXTROSE 50 % IN WATER 25 GM/50 ML SYRINGE IV ×2 (15:39→18:45)
[2020-04-27 15:40] LABS: Lactate (Lactic Acid) 1.5 mmol/L (0.7-2.1)
[2020-04-27 16:00] LABS: Procalcitonin 5.59 ng/mL (<0.5)
--- NOTE | 2020-04-27 16:17 | DI.CT.S_ITS ---
PROCEDURE: CT ABDOMEN PELVIS WO CON INDICATIONS: ? liver/gallbladder TECHNIQUE: Noncontrast 5 mm thick sections acquired from the diaphragms to the symphysis. 5 mm coronal and sagittal reformats were then performed. For radiation dose reduction, the following was used: automated exposure control, adjustment of mA and/or kV according to patient size. COMPARISON: None. FINDINGS: Image quality: Excellent. ABDOMEN: Lung bases: Lung bases are clear. Heart size is normal. Coronary artery calcifications are present. Cirrhosis of the liver is seen. Gallbladder is distended and there is ill-defined gallbladder wall thickening and pericholecystic inflammatory appearance. No definite gallstones are seen. Pancreas is normal in contours. Spleen is normal in size. No adrenal nodules. No hydronephrosis. 2 cm nonspecific cystic appearing lesion involving the right kidney on image 44/2. Peritoneum and bowel: Questionable distal esophageal circumferential mural thickening. No free fluid or air. Colonic diverticulosis is seen without evidence of acute complication. Normal appendix. Nodes and vessels: No retroperitoneal or mesenteric adenopathy by size criteria. Aorta and inferior vena cava are normal in caliber. Miscellaneous: No ventral hernias. PELVIS: Genitourinary: Bladder wall thickness is normal. Bilateral small fat containing inguinal hernias. Bones: No suspicious bony lesions. No vertebral body compression fractures. IMPRESSION: Distended gallbladder with pericholecystic inflammation. Findings are most suspicious for acute cholecystitis. No definite radiopaque cholelithiasis is identified. Cirrhosis of liver Incidental colonic diverticulosis. Additional chronic and incidental findings as above. Dictated by: Samuel Ruiz M.D. on 04/27/2020 at 17:00 Approved by: Samuel Ruiz M.D. on 04/27/2020 at 17:07
--- NOTE | 2020-04-27 16:23 | PC.NURSE ---
Patient blood pressure decrease to 109/55 from initial SBP of 130. Provider notified of decrease. Fluid bolus maintained and additional fluids order by provider. Patient denies dizziness, lightheaded, and no altered mental status noticed. No significant increase in HR or respirations. Will continue to monitor.
[2020-04-27 16:57] LABS: COVID19 -Nasal RAPID Negative (Negative)
[2020-04-27] MEDS: LACTATED RINGERS 1,000 ML 1000 ML IV (17:27)
[2020-04-27 18:04] LABS: Troponin I 0.088 ng/mL (0.01-0.034)
[2020-04-27] MEDS: SODIUM CHLORIDE 0.9% 1,000 ML 150 ML IV (18:26)
[2020-04-27] MEDS: DEXTROSE 10 % IN WATER 1,000 ML 150 ML IV (18:47)
--- NOTE | 2020-04-27 18:56 | PC.NURSE ---
During patient check noted patient had decrease level of alertness and mentation. Initiated blood glucose check and found glucose reading of 37. Dr Drummond notified and ordered dextrose push and D10 to be hung. Immediately followed dextrose push mentation improved to previous baseline.
[2020-04-27 19:53] LABS: Bacteria Urine None Seen; RBC Urine None Seen (0-5/HPF); WBC Urine None Seen (0-5/HPF)
[2020-04-27 19:54] LABS: Appearance Urine UA CLEAR; Bilirubin Urine UA NEGATIVE (NEGATIVE); Color Urine UA YELLOW; Glucose Urine UA NEGATIVE (Negative); Ketones Urine UA NEGATIVE (NEGATIVE); Leukocyte Esterase Urine UA NEGATIVE (NEGATIVE); Nitrite Urine UA NEGATIVE (Negative); Occult Blood Urine UA NEGATIVE (Negative); Protein Urine UA NEGATIVE (Negative); Specific Gravity Urine UA 1.015 (1.000-1.035); Urobilinogen Urine UA 0.2 E.U./dL (0.2)
[2020-04-27 19:59] LABS: Culture Indicated Urine Cult Not Indicated; Urine Comments Microscopic Normal
== END 2020-04-27 20:40 | disposition short-term general hospital (02) ==
PROVIDERS: Emergency Provider Emergency Medicine; PCP Student in an Organized Health Care Education/Training Program
DX: K81.9 Cholecystitis, unspecified (principal); A41.9 Sepsis, unspecified organism; N17.9 Acute kidney failure, unspecified; R07.81 Pleurodynia; R07.89 Other chest pain
CPT/HCPCS: 36415; 71045; 74176; 76705; 80053; 81001; 82550; 82553; 82962; 83605; 83690; 84145; 84484; 85025; 87040; 87635; 93005; 96361; 96365; 96375; 99284; J2270; J2543

== ENCOUNTER 2020-09-21 09:44 | Emergency (ER) | payer OTHER, SELFPAY ==
[2020-09-21 10:10] VITALS: BP 176/72; PULSE 48; RESP 18; TEMP 37.2; O2SAT 97; BMI 23.7
--- NOTE | 2020-09-21 10:27 | ED_ITS ---
HPI - Skin/Abscess/Foreign Bdy General Chief complaint: Skin/Abscess/Foreign Body Stated complaint: covid vaccine reaction Time Seen by Provider: 09/21/20 10:19 Source: patient Mode of arrival: Family Vehicle Limitations: no limitations History of Present Illness HPI narrative: Patient is a 80-year-old male with history of diabetes and hypertension presenting with right great toe redness and pain for 2 days. He s aid actually started after he received his 2nd med during a vaccination. He said within a couple of hours he started noticing some redness in his toe. It has progressively gotten more red. He denies any fever or chills. No calf pain no headache or shortness of breath. He thinks he has had a remote history of gout but is unsure. MD complaint: rash Onset (ago): day(s) (2) Location: R foot (Great toe) Severity: mild Quality: aching Related Data Home Medications Medication Instructions Recorded Confirmed aspirin 81 mg PO QPM #0 03/28/06 10/19/18 Focus Factor 1 dose PO DAILY 10/19/18 10/19/18 glipizide 10 mg PO DAILY 10/19/18 08/08/19 insulin NPH isoph U-100 human 40 units SUBCUT BID 10/19/18 10/19/18 [Humulin N NPH U-100 Insulin] lisinopril 10 mg PO QPM 10/19/18 08/08/19 metoprolol succinate 50 mg PO DAILY 10/19/18 10/19/18 pravastatin 40 mg PO QPM 10/19/18 08/08/19 Previous Rx's Medication Instructions Recorded cephalexin 500 mg PO TID 7 Days #21 cap 09/21/20 Allergies Allergy/AdvReac Type Severity Reaction Status Date / Time No Known Drug Allergies Allergy Verified 09/21/20 10:16 Review of Systems Review of Systems Narrative: GENERAL: Denies chills, fatigue, malaise, fever, sweats, travel HEENT: Denies sinus pain, ear pain, sore throat, difficulty swallowing, neck pain RESPIRATORY: Denies dyspnea, cough, wheezing, hemoptysis, sputum. CARDIOVASCULAR: Denies chest pain, palpitations, orthopnea, edema GASTROINTESTINAL: Denies nausea, vomiting, abdominal pain, diarrhea, constipation, melena. : Denies dysuria, frequency, incontinence, hematuria, urinary retention, flank pain. MUSCULOSKELETAL: Denies weakness, joint pain, or bony pain SKIN: See HPI NEUROLOGIC: Denies weakness, dizziness, headache, numbness, change in speech, confusion PSYCHIATRIC: No concerning psychosocial issues. 12 point review of systems is negative except for those stated above and HPI Patient History Medical History Diabetes Hypertension Social History Smoking Status: Never smoker Smoking Status: Never smoker alcohol intake frequency: 0-2 drinks per day Substance Use Type: does not use Exam Initial Vital Signs Initial Vital Signs: Vital Signs Temperature 99.0 F 09/21/20 10:10 Pulse Rate 48 L 09/21/20 10:10 Respiratory Rate 18 09/21/20 10:10 Blood Pressure 176/72 H 09/21/20 10:10 Pulse Oximetry 97 09/21/20 10:10 GENERAL: Alert well-appearing 80-year-old male and in [no acute] distress. HEENT: Head atraumatic,EOMI, pupils reactive, face symmetric, [moist] mucous membranes CARDIOVASCULAR: Regular rate and rhythm without murmurs, rubs or gallops. RESPIRATORY: Breath sounds equal bilaterally, no wheezes rales or rhonchi. ABDOMEN: Soft, nontender. Normoactive bowel sounds all 4 quadrants. No guarding or rebound. EXTREMITIES: Normal range of motion, no clubbing or edema. Neurovascularly intact NEUROLOGICAL: Alert and oriented x4.Normal gait and speech. Cranial nerves II through XII grossly intact. SKIN: Warm, dry, no laceration, no petechiae, no rashes or lesions. Course Orders Ordered: ED Orders 09/21/20 10:40 Complete Blood Count AUTO DIFF Stat Comprehensive Metabolic Panel Stat Procalcitonin Stat Uric Acid Stat Vital Signs Vital signs: Vital Signs - 8 hr 09/21/20 11:29 09/21/20 11:30 09/21/20 11:31 Pulse Rate 55 L 55 L 55 L Respiratory Rate 16 16 15 Blood Pressure 142/77 H Pulse Oximetry 99 99 98 MDM - Skin/Abscess/Foreign Bdy Lab Data Attestation: I reviewed the patient's lab results. Result diagrams: 09/21/20 10:40 09/21/20 10:40 Labs: Lab Results 09/21/20 09/21/20 Range/Units 10:40 10:40 WBC 8.8 (4.5-11.0) X10^3/uL RBC 5.02 (4.5-5.9) X10^6/uL Hgb 15.4 (13.5-17.5) g/dL Hct 45.8 (41-53) % MCV 91.2 (80-100) fL MCH 30.8 (26-34) PG MCHC 33.7 (30-36) % RDW 15.0 H (11.6-14.8) % Plt Count 163 (150-400) X10^3/uL Neut % (Auto) 48.3 L (50-75) % Lymph % (Auto) 30.8 (25-40) % [place] % (Auto) 11.0 (3-14) % Eos % (Auto) 8.9 H (2-4) % Baso % (Auto) 1.0 (0-2) % Neut # (Auto) 4300 (6990-3605) /uL Lymph # (Auto) 2700 (6029-7118) /uL [place] # (Auto) 1000 H (0-900) /uL Eos # (Auto) 800 H (0-450) /uL Baso # (Auto) 100 (0-100) /uL Sodium 141 (137-145) mmol/L Potassium 4.5 (3.4-5.1) mmol/L Chloride 107 (98-107) mmol/L Carbon Dioxide 25 (22-32) mmol/L BUN 35 H (9-20) mg/dL Creatinine 1.85 H (0.66-1.25) mg/dL Estimated GFR 35.4 L (>60) mL/min BUN/Creatinine Ratio 18.9 (6-22) Glucose 58 L (80-110) mg/dL Uric Acid 7.3 (3.5-8.5) mg/dL Calcium 9.5 (8.4-10.2) mg/dL Total Bilirubin 1.1 (0.2-1.3) mg/dL AST 47 (17-59) IU/L ALT 25 (<50) IU/L Alkaline Phosphatase 144 H (38-126) U/L Total Protein 7.5 (6.3-8.2) g/dL Albumin 4.0 (3.5-5.0) g/dL Globulin 3.5 (1.7-4.1) g/dL Albumin/Globulin Ratio 1.1 (1.0-2.8) Procalcitonin 0.18 (<0.5) ng/mL MDM Narrative Medical decision making narrative: Patient's blood work is actually at baseline, creatinine is actually improved from a fall last year. Have low suspicion for this to be a vaccination reaction. He has no erythema at the site of injection. This may be coincidence. Uric acid is within normal limits no definite history of gout. I think possible cellulitis. He is afebrile without leukocytosis. At this time I recommend trial of antibiotics to see if it improves. Discussed warning signs with patient and when to return to the ED. Discharge Plan Departure Patient Disposition: Home Clinical Impression: Cellulitis Qualifiers: Site of cellulitis: extremity Site of cellulitis of extremity: toe Laterality: left Qualified Code(s): L03.032 - Cellulitis of left toe Instructions: DI for Cellulitis -- Adult Activity Restrictions/Additional Instructions: *You have been diagnosed with cellulitis left great toe *What to do: At this time I think you have infection of her toe. It does not to be reaction to the vaccination. *Continue to take medications as directed Keflex 500 mg 3 times a day for 7 days--> SENT TO [facility] *Follow up with your primary care provider in 2-3 days *Return to ER if you should have increasing redness, pain,, fever or any new, worsening or concerning symptoms Prescriptions: New cephalexin 500 mg capsule 500 mg PO TID 7 Days Qty: 21 RF: 0 No Action aspirin 81 mg Tablet,Delayed Release (Dr/Ec) 81 mg PO QPM Qty: 0 RF: 0 pravastatin 40 mg Tablet 40 mg PO QPM RF: 0 metoprolol succinate 50 mg Tablet Extended Release 24 Hr 50 mg PO DAILY RF: 0 glipizide 10 mg Tablet 10 mg PO DAILY RF: 0 lisinopril 10 mg Tablet 10 mg PO QPM RF: 0 Humulin N NPH U-100 Insulin 100 unit/mL Suspension 40 units subcut BID RF: 0 Focus Factor 1 dose PO DAILY RF: 0 Referrals: Bisi Shankar MD [Primary Care Provider] -
[2020-09-21 10:50] LABS: Add Manual Diff / Slide Review NO; Basophils Absolute Auto 100 /uL (0-100); Eosinophils Absolute Auto 800 /uL (0-450); Eosinophils Percent Auto 8.9 % (2-4); Hematocrit 45.8 % (41-53); Hemoglobin 15.4 g/dL (13.5-17.5); Lymphocytes Absolute Auto 2700 /uL (1100-4500); Lymphocytes Percent Auto 30.8 % (25-40); Mean Corpuscular HGB Conc 33.7 % (30-36); Mean Corpuscular Hemoglobin 30.8 PG (26-34); Mean Corpuscular Volume 91.2 fL (80-100); Monocytes Absolute Auto 1000 /uL (0-900); Neutrophils Absolute Auto 4300 /uL (1500-7000); Neutrophils Percent Auto 48.3 % (50-75); Platelet Count 163 X10^3/uL (150-400); Red Blood Cell Count 5.02 X10^6/uL (4.5-5.9); White Blood Cell Count 8.8 X10^3/uL (4.5-11.0)
[2020-09-21 11:03] LABS: Alanine Aminotransferase 25 IU/L (<50); Albumin Globulin Ratio 1.1 (1.0-2.8); Alkaline Phosphatase 144 U/L (38-126); Aspartate Aminotransferase 47 IU/L (17-59); BUN Creatinine Ratio 18.9 (6-22); Bilirubin Total 1.1 mg/dL (0.2-1.3); Blood Urea Nitrogen 35 mg/dL (9-20); Calcium 9.5 mg/dL (8.4-10.2); Carbon Dioxide 25 mmol/L (22-32); Chloride 107 mmol/L (98-107); Estimated Glomerular Filt Rate 35.4 mL/min (>60); Globulin 3.5 g/dL (1.7-4.1); Glucose 58 mg/dL (80-110); HEMOLYSIS < 15 (0-50); Potassium 4.5 mmol/L (3.4-5.1); Sodium 141 mmol/L (137-145); Total Protein 7.5 g/dL (6.3-8.2); Uric Acid 7.3 mg/dL (3.5-8.5)
[2020-09-21 11:20] LABS: Procalcitonin 0.18 ng/mL (<0.5)
[2020-09-21 11:29] VITALS: PULSE 55; RESP 16; O2SAT 99
[2020-09-21 11:30] VITALS: PULSE 55; RESP 16; O2SAT 99
[2020-09-21 11:31] VITALS: BP 142/77; PULSE 55; RESP 15; O2SAT 98
== END 2020-09-21 11:49 | disposition home or self-care (01) ==
PROVIDERS: Emergency Provider Emergency Medicine; PCP Student in an Organized Health Care Education/Training Program
DX: L03.032 Cellulitis of left toe (principal)
CPT/HCPCS: 36415; 80053; 84145; 84550; 85025; 99281; 99283

== ENCOUNTER 2020-12-26 10:15 | Emergency (ER) | payer OTHER, SELFPAY ==
[2020-12-26] VITALS (35 sets, daily range): BP systolic 128–206; BP diastolic 63–114; PULSE 62–100; RESP 15–31; TEMP 36.8; O2SAT 86–99
--- NOTE | 2020-12-26 10:23 | DI.RAD.S_ITS ---
PROCEDURE: XR CHEST 1V INDICATIONS: chest pain TECHNIQUE: One view of the chest was acquired. COMPARISON: [facility], CR, XR CHEST 1V, 04/27/2020, 14:42. FINDINGS: Surgical changes and devices: None. Lungs and pleura: Lungs are clear. No pleural effusions or pneumothorax. Mediastinum: Mediastinal contours appear normal. Heart size is enlarged. Bones and chest wall: No suspicious bony lesions. Overlying soft tissues appear unremarkable. IMPRESSION: No acute cardiopulmonary pathology. Dictated by: Philippe Santoor M.D. on 12/26/2020 at 11:05 Approved by: Philippe Santoro M.D. on 12/26/2020 at 11:08
--- NOTE | 2020-12-26 10:46 | ED.SYNCOPE ---
HPI - Syncope General Chief Complaint: Arrhythmia/Palpitations Stated Complaint: Dm II/irreg heartrate x1 day Time Seen by Provider: 12/26/20 10:34 History of Present Illness HPI narrative: Patient is a 80-year-old male who has history of insulin-dependent diabetes presenting with generally not feeling well slightly elevated glucose in the 130s which is abnormal for him son states that he is nodding off he thinks more frequently than normal. In triage she is found to have long pauses. EKG and monitor confirmed that he is having at least 5 second pauses. Under lying accelerated rhythm appears junctional with a rate in the 90s. Patient denies chest pain palpitation shortness of breath he does not think he is passing out. In the room he has multiple frequent long pauses. Related Data Home Medications Medication Instructions Recorded Confirmed aspirin 81 mg tablet,delayed 81 mg PO QPM #0 03/28/06 10/19/18 release Focus Factor 1 dose PO DAILY 10/19/18 10/19/18 glipizide 10 mg tablet 10 mg PO DAILY 10/19/18 08/08/19 insulin NPH isoph U-100 human 100 40 units SUBCUT BID 10/19/18 10/19/18 unit/mL subcutaneous suspension (Humulin N NPH U-100 Insulin (isophane susp)) lisinopril 10 mg tablet 10 mg PO QPM 10/19/18 08/08/19 metoprolol succinate 50 mg 50 mg PO DAILY 10/19/18 10/19/18 tablet,extended release 24 hr pravastatin 40 mg tablet 40 mg PO QPM 10/19/18 08/08/19 Allergies Allergy/AdvReac Type Severity Reaction Status Date / Time No Known Drug Allergies Allergy Verified 12/26/20 10:54 Review of Systems Review of Systems ROS Unobtainable: All systems reviewed & are unremarkable except as noted in HPI and below Constitutional Constitutional: Denies body ache(s), Denies chills, Denies fatigue and Denies fever(s) Eyes Eyes: Denies blurry vision ENT Ears, Nose, Mouth, and Throat: Denies vertigo and Denies dizziness Cardiovascular Cardiovascular: Denies chest pain and Denies irregular heart rhythm Respiratory Respiratory: Denies chest congestion and Denies cough Gastrointestinal Gastrointestinal: Denies abdominal pain, Denies nausea and Denies vomiting Musculoskeletal Musculoskeletal: Denies back pain Integumentary/Breasts Skin/Breast: Denies rash Neurologic Neurologic: Denies vertigo and Denies dizziness Endocrine Endocrine: Denies fatigue Patient History Medical History Diabetes Hypertension Social History Smoking Status: Never smoker Smoking Status: Never smoker alcohol intake frequency: 0-2 drinks per day Substance Use Type: does not use Exam Initial Vital Signs Initial Vital Signs: Vital Signs Temperature 98.3 F 12/26/20 10:20 Pulse Rate 100 H 12/26/20 10:20 Respiratory Rate 15 12/26/20 10:20 Blood Pressure 159/102 H 12/26/20 10:20 Pulse Oximetry 95 12/26/20 10:20 GENERAL: Alert 80-year-old male appears well slightly pale HEENT: Head atraumatic,EOMI, pupils reactive, face symmetric, moist mucous membranes CARDIOVASCULAR: Irregular long, frequent long pauses RESPIRATORY: Breath sounds equal bilaterally, no wheezes rales or rhonchi. ABDOMEN: Soft, nontender. Normoactive bowel sounds all 4 quadrants. No guarding or rebound. EXTREMITIES: Normal range of motion, no clubbing or edema. Neurovascularly intact NEUROLOGICAL: Alert and oriented x4.Normal gait and speech. Cranial nerves II through XII grossly intact. SKIN: Warm, dry, no laceration, no petechiae, no rashes or lesions. Procedures Central Line Placement Right IJ: Time of procedure: 12:18 Time Out Performed: Yes Patient Placed on Monitor/Pulse Ox: Yes MD Prep: mask, gown and gloves Central Line Prep: Chlorhexidine scrub and sterile drapes applied Local Anesthetic: lidocaine 1% Amount of anesthesia used (mL): 5 Ultrasound Used for Placement: Yes Central Line Lumen Inserted: triple Post Procedure: good blood return, all ports aspirated, flushed, capped and sterile dressing applied Post Procedure X-Ray: tip of catheter in good position and no pneumothorax seen Patient Tolerated Procedure: Well and No complications Course Orders Ordered: ED Orders 12/26/20 11:17 Complete Blood Count AUTO DIFF Stat Magnesium Stat 12/26/20 12:13 XR chest 1V Stat Discontinued Medications Atropine Sulfate (Atropine 1 Mg/10 Ml Syringe) 0.5 mg IV NOW ONE Stop: 12/26/20 11:21 Last Admin: 12/26/20 11:27 Dose: 0.5 mg Documented by: RACQUEL Glucagon (Glucagon,Human Recombinant 1 Mg/Ml Vial) 5 mg IV NOW ONE Stop: 12/26/20 10:59 Last Admin: 12/26/20 11:18 Dose: 5 mg Documented by: RACQUEL Dopamine HCl/Dextrose (Dopamine 400 Mg-D5w 250 Ml) 400 mg in 250 mls @ 13.931 mls/hr IV TITRATE TASHA; Protocol Last Titration: 12/26/20 13:00 Dose: 0 mcg/kg/min, 0 mls/hr Documented by: Admin: 12/26/20 11:25 Dose: 5 mcg/kg/min, 13.931 mls/hr Documented by: RACQUEL Vital Signs Vital signs: Vital Signs - 8 hr 12/26/20 12:20 12/26/20 12:25 12/26/20 12:30 Pulse Rate 91 H 93 H 94 H Respiratory Rate 24 19 21 Blood Pressure 128/68 170/77 H 153/71 H Pulse Oximetry 95 96 95 12/26/20 12:35 12/26/20 12:40 12/26/20 12:45 Pulse Rate 94 H 74 62 Respiratory Rate 31 H 25 H 26 H Blood Pressure 131/63 Pulse Oximetry 96 94 MDM - Syncope Lab Data Result diagrams: 12/26/20 11:17 12/26/20 11:05 Labs: Lab Results 12/26/20 12/26/20 12/26/20 Range/Units 10:50 11:05 11:17 WBC 9.1 (4.5-11.0) X10^3/uL RBC 5.11 (4.5-5.9) X10^6/uL Hgb 16.4 (13.5-17.5) g/dL Hct 48.8 (41-53) % MCV 95.6 (80-100) fL MCH 32.2 (26-34) PG MCHC 33.7 (30-36) % RDW 14.8 (11.6-14.8) % Plt Count 145 L (150-400) X10^3/uL Neut % (Auto) 55.3 (50-75) % Lymph % (Auto) 29.9 (25-40) % [place] % (Auto) 8.8 (3-14) % Eos % (Auto) 5.2 H (2-4) % Baso % (Auto) 0.8 (0-2) % Neut # (Auto) 5000 (0694-0727) /uL Lymph # (Auto) 2700 (5661-6065) /uL [place] # (Auto) 800 (0-900) /uL Eos # (Auto) 500 H (0-450) /uL Baso # (Auto) 100 (0-100) /uL Sodium 142 (137-145) mmol/L Potassium 4.8 (3.4-5.1) mmol/L Chloride 110 H (98-107) mmol/L Carbon Dioxide 25 (22-32) mmol/L BUN 32 H (9-20) mg/dL Creatinine 1.73 H (0.66-1.25) mg/dL Estimated GFR 38.3 L (>60) mL/min BUN/Creatinine Ratio 18.5 (6-22) Glucose 52 L (80-110) mg/dL Calcium 9.9 (8.4-10.2) mg/dL Magnesium (1.6-2.3) mg/dL Total Bilirubin 1.3 (0.2-1.3) mg/dL AST 50 (17-59) IU/L ALT 28 (<50) IU/L Alkaline Phosphatase 137 H (38-126) U/L Total Creatine Kinase 112 (55-170) U/L CK-MB (CK-2) 3.66 H (<2.37) ng/mL CK-MB (CK-2) Rel Index 3.3 (1.5-5.0) % Troponin I 0.042 H (0.01-0.034) ng/mL Total Protein 7.9 (6.3-8.2) g/dL Albumin 4.2 (3.5-5.0) g/dL Globulin 3.7 (1.7-4.1) g/dL Albumin/Globulin Ratio 1.1 (1.0-2.8) Lipase 150 (23-300) U/L SARS-CoV-2 (PCR) Negative (Negative) 12/26/20 Range/Units 11:17 WBC (4.5-11.0) X10^3/uL RBC (4.5-5.9) X10^6/uL Hgb (13.5-17.5) g/dL Hct (41-53) % MCV (80-100) fL MCH (26-34) PG MCHC (30-36) % RDW (11.6-14.8) % Plt Count (150-400) X10^3/uL Neut % (Auto) (50-75) % Lymph % (Auto) (25-40) % [place] % (Auto) (3-14) % Eos % (Auto) (2-4) % Baso % (Auto) (0-2) % Neut # (Auto) (1247-7800) /uL Lymph # (Auto) (8115-4043) /uL [place] # (Auto) (0-900) /uL Eos # (Auto) (0-450) /uL Baso # (Auto) (0-100) /uL Sodium (137-145) mmol/L Potassium (3.4-5.1) mmol/L Chloride (98-107) mmol/L Carbon Dioxide (22-32) mmol/L BUN (9-20) mg/dL Creatinine (0.66-1.25) mg/dL Estimated GFR (>60) mL/min BUN/Creatinine Ratio (6-22) Glucose (80-110) mg/dL Calcium (8.4-10.2) mg/dL Magnesium 1.9 (1.6-2.3) mg/dL Total Bilirubin (0.2-1.3) mg/dL AST (17-59) IU/L ALT (<50) IU/L Alkaline Phosphatase (38-126) U/L Total Creatine Kinase (55-170) U/L CK-MB (CK-2) (<2.37) ng/mL CK-MB (CK-2) Rel Index (1.5-5.0) % Troponin I (0.01-0.034) ng/mL Total Protein (6.3-8.2) g/dL Albumin (3.5-5.0) g/dL Globulin (1.7-4.1) g/dL Albumin/Globulin Ratio (1.0-2.8) Lipase (23-300) U/L SARS-CoV-2 (PCR) (Negative) Point of Care Testing Glucose POC 89 Imaging Data Chest x-ray: Radiologist's Impression: PROCEDURE: XR CHEST 1V INDICATIONS: chest pain TECHNIQUE: One view of the chest was acquired. COMPARISON: [facility], CR, XR CHEST 1V, 04/27/2020, 14:42. FINDINGS: Surgical changes and devices: None. Lungs and pleura: Lungs are clear. No pleural effusions or pneumothorax. Mediastinum: Mediastinal contours appear normal. Heart size is enlarged. Bones and chest wall: No suspicious bony lesions. Overlying soft tissues appear unremarkable. IMPRESSION: No acute cardiopulmonary pathology. Dictated by: Philippe Santoro M.D. on 12/26/2020 at 11:05 CX 2: Radiologist's Impression: PROCEDURE: XR CHEST 1V INDICATIONS: s/p IJ, LINE PLACEMENT TECHNIQUE: One view of the chest was acquired. COMPARISON: [facility], CR, XR CHEST 1V, 12/26/2020, 10:24. [facility], CR, XR CHEST 1V, 04/27/2020, 14:42. FINDINGS: Surgical changes and devices: Right IJ central venous line with the tip in the proximal right atrium. Lungs and pleura: Lungs are clear. No pleural effusions or pneumothorax. Mediastinum: Mediastinal contours appear normal. Heart size is normal. Bones and chest wall: No suspicious bony lesions. Overlying soft tissues appear unremarkable. IMPRESSION: Right IJ central venous line with the tip in the proximal right atrium. No pneumothorax. Dictated by: Jeet Zuniga M.D. on 12/26/2020 at 12:36 ECG Data Interpretation: EKG 1. 5 second pause, junctional rhythm rate 96 MDM Narrative Medical decision making narrative: [address] kothari cardiology has reviewed EKGs updated on patient's symptoms test results. At this time recommends glucagon for metoprolol atropine as needed and dopamine drip and transfer for pacemaker. Patient had very little response to glucagon atropine seem to work dopamine was started simultaneously. During central line procedure pauses seem to be decreased significantly both in frequency and in length. Patient continues to feel only lightheaded but otherwise okay. He denies taking any extra metoprolol medication. Blood work is overall reassuring. 1123am Dr. [facility] [place] [facility] has been updated patient's symptoms test results and happily accepts patient The patient is doing significantly better on dopamine. Very minimal pauses heart rate is doing better. Critical Care Time Critical Care Time Critical Care Time: Yes Total Critical Care Time: 45 Attestation: The high probability of a clinically significant, sudden or life threatening deterioration of the [cardiovascular] system(s) required my full and direct attention, intervention and personal management. The aggregate critical care time was [45] minutes. This time is in addition to time spent performing reported procedures but includes the following: [x] Data Review and interpretation [x] Patient assessment and monitoring of vital signs [x] Documentation [x] Medication orders and management Discharge Plan Departure Patient Disposition: [facility] Clinical Impression: Symptomatic bradycardia Prescriptions: No Action aspirin 81 mg Tablet,Delayed Release (Dr/Ec) 81 mg PO QPM Qty: 0 RF: 0 pravastatin 40 mg Tablet 40 mg PO QPM RF: 0 metoprolol succinate 50 mg Tablet Extended Release 24 Hr 50 mg PO DAILY RF: 0 glipizide 10 mg Tablet 10 mg PO DAILY RF: 0 lisinopril 10 mg Tablet 10 mg PO QPM RF: 0 Humulin N NPH U-100 Insulin 100 unit/mL Suspension 40 units subcut BID RF: 0 Focus Factor 1 dose PO DAILY RF: 0 Referrals: Bisi Shankar MD [Primary Care Provider] -
[2020-12-26 11:10] LABS: COVID19 -Nasal RAPID Negative (Negative)
[2020-12-26] MEDS: GLUCAGON,HUMAN RECOMBINANT 1 MG/ML VIAL 5 MG IV (11:18)
[2020-12-26 11:24] LABS: Add Manual Diff / Slide Review NO; Basophils Absolute Auto 100 /uL (0-100); Basophils Percent Auto 0.8 % (0-2); Eosinophils Absolute Auto 500 /uL (0-450); Eosinophils Percent Auto 5.2 % (2-4); Hematocrit 48.8 % (41-53); Hemoglobin 16.4 g/dL (13.5-17.5); Lymphocytes Absolute Auto 2700 /uL (1100-4500); Lymphocytes Percent Auto 29.9 % (25-40); Mean Corpuscular HGB Conc 33.7 % (30-36); Mean Corpuscular Hemoglobin 32.2 PG (26-34); Mean Corpuscular Volume 95.6 fL (80-100); Monocytes Absolute Auto 800 /uL (0-900); Monocytes Percent Auto 8.8 % (3-14); Neutrophils Absolute Auto 5000 /uL (1500-7000); Neutrophils Percent Auto 55.3 % (50-75); Platelet Count 145 X10^3/uL (150-400); Red Blood Cell Count 5.11 X10^6/uL (4.5-5.9); Red Cell Distribution Width 14.8 % (11.6-14.8); White Blood Cell Count 9.1 X10^3/uL (4.5-11.0)
[2020-12-26 11:25] LABS: Alanine Aminotransferase 28 IU/L (<50); Albumin 4.2 g/dL (3.5-5.0); Albumin Globulin Ratio 1.1 (1.0-2.8); Alkaline Phosphatase 137 U/L (38-126); Aspartate Aminotransferase 50 IU/L (17-59); BUN Creatinine Ratio 18.5 (6-22); Bilirubin Total 1.3 mg/dL (0.2-1.3); Blood Urea Nitrogen 32 mg/dL (9-20); Calcium 9.9 mg/dL (8.4-10.2); Carbon Dioxide 25 mmol/L (22-32); Chloride 110 mmol/L (98-107); Creatine Kinase 112 U/L (55-170); Estimated Glomerular Filt Rate 38.3 mL/min (>60); Globulin 3.7 g/dL (1.7-4.1); Glucose 52 mg/dL (80-110); Lipase 150 U/L (23-300); Potassium 4.8 mmol/L (3.4-5.1); Sodium 142 mmol/L (137-145); Total Protein 7.9 g/dL (6.3-8.2)
[2020-12-26] MEDS: DOPAMINE HCL IN DEXTROSE 5 % 400 MG/250 ML PLAST..BAG 13.931 MG IV (11:25)
[2020-12-26] MEDS: ATROPINE 1 MG/10 ML SYRINGE 0.5 MG IV (11:27)
[2020-12-26 11:34] LABS: Magnesium 1.9 mg/dL (1.6-2.3)
[2020-12-26 11:37] LABS: Troponin I 0.042 ng/mL (0.01-0.034)
[2020-12-26 11:40] LABS: CKMB % Relative Index 3.3 % (1.5-5.0); Creatine Kinase MB 3.66 ng/mL (<2.37); HEMOLYSIS 29 (0-50)
--- NOTE | 2020-12-26 12:13 | DI.RAD.S_ITS ---
PROCEDURE: XR CHEST 1V INDICATIONS: s/p IJ, LINE PLACEMENT TECHNIQUE: One view of the chest was acquired. COMPARISON: [facility], CR, XR CHEST 1V, 12/26/2020, 10:24. [facility], CR, XR CHEST 1V, 04/27/2020, 14:42. FINDINGS: Surgical changes and devices: Right IJ central venous line with the tip in the proximal right atrium. Lungs and pleura: Lungs are clear. No pleural effusions or pneumothorax. Mediastinum: Mediastinal contours appear normal. Heart size is normal. Bones and chest wall: No suspicious bony lesions. Overlying soft tissues appear unremarkable. IMPRESSION: Right IJ central venous line with the tip in the proximal right atrium. No pneumothorax. Dictated by: Jeet Zuniga M.D. on 12/26/2020 at 12:36 Approved by: Jeet Zuniga M.D. on 12/26/2020 at 12:38
--- NOTE | 2020-12-26 12:26 | PC.NURSE ---
Pt in sinus arrythmias with frequent long pauses/asystole. Vitals otherwise stable, pt states some lightheadedness but denies any other indications of pauses.
== END 2020-12-26 13:00 | disposition short-term general hospital (02) ==
PROVIDERS: Emergency Provider Emergency Medicine; PCP Student in an Organized Health Care Education/Training Program
DX: R00.1 Bradycardia, unspecified (principal); R07.9 Chest pain, unspecified; Z20.822 Contact with and (suspected) exposure to COVID-19
CPT/HCPCS: 36415; 36573; 71045; 80053; 82550; 82553; 82962; 83690; 83735; 84484; 85025; 87635; 93005; 93010; 96365; 96366; 96375; 99284; 99291; 99292; C9803; J0461; J1610

== ENCOUNTER → 2021-02-26 13:55 | Outpatient (ROUT) | payer OTHER, SELFPAY ==
[2021-02-26 14:24] LABS: INR 1.2 (0.9-1.3); Prothrombin Time 13.3 SECONDS (10.1-12.7)
== END ==
PROVIDERS: PCP Student in an Organized Health Care Education/Training Program; Visit Provider Student in an Organized Health Care Education/Training Program
DX: I48.91 Unspecified atrial fibrillation (principal); Z79.01 Long term (current) use of anticoagulants
CPT/HCPCS: 85610

== ENCOUNTER → 2021-03-22 08:53 | Outpatient (ROUT) | payer OTHER, SELFPAY ==
[2021-03-22 09:32] LABS: INR 1.2 (0.9-1.3); Prothrombin Time 13.2 SECONDS (10.1-12.7)
== END ==
PROVIDERS: PCP Student in an Organized Health Care Education/Training Program; Visit Provider Student in an Organized Health Care Education/Training Program
DX: Z79.01 Long term (current) use of anticoagulants (principal)
CPT/HCPCS: 85610

== ENCOUNTER → 2021-05-06 08:41 | Outpatient (ROUT) | payer OTHER, SELFPAY ==
[2021-05-06 09:23] LABS: Prothrombin Time 13.4 SECONDS (10.1-12.7)
[2021-05-06 09:37] LABS: INR 1.2 (0.9-1.3)
== END ==
PROVIDERS: PCP Student in an Organized Health Care Education/Training Program; Visit Provider Student in an Organized Health Care Education/Training Program
DX: Z79.01 Long term (current) use of anticoagulants (principal)
CPT/HCPCS: 85610

== ENCOUNTER → 2021-05-24 08:58 | Outpatient (CLI) | payer OTHER, SELFPAY ==
[2021-05-24 11:12] LABS: Hemoglobin A1C% w Est Avg Glu 8.3 % (4.0-6.0)
[2021-05-24 11:38] LABS: Creatinine Urine Random 91.3 mg/dL
[2021-05-24 11:44] LABS: Microalbumi Creatinin Ratio Ur 36.1 ug/mg CR (<30); Microalbumin Urine Random 3.3 mg/dL (0-1.6)
== END ==
PROVIDERS: PCP Student in an Organized Health Care Education/Training Program; Referring Provider Student in an Organized Health Care Education/Training Program; Visit Provider Student in an Organized Health Care Education/Training Program
DX: E11.9 Type 2 diabetes mellitus without complications (principal)
CPT/HCPCS: 36415; 82043; 82570; 83036

== ENCOUNTER → 2021-08-13 14:10 | Outpatient (ROUT) | payer OTHER, SELFPAY ==
[2021-08-13 14:57] LABS: INR 1.4 (0.9-1.3); Prothrombin Time 15.2 SECONDS (10.1-12.7)
== END ==
PROVIDERS: PCP Student in an Organized Health Care Education/Training Program; Visit Provider Student in an Organized Health Care Education/Training Program
DX: Z79.01 Long term (current) use of anticoagulants (principal)
CPT/HCPCS: 85610

== ENCOUNTER → 2021-08-27 10:32 | Outpatient (ROUT) | payer OTHER, SELFPAY ==
[2021-08-27 10:43] LABS: INR 1.6 (0.9-1.3); Prothrombin Time 17.7 SECONDS (10.1-12.7)
== END ==
PROVIDERS: PCP Student in an Organized Health Care Education/Training Program; Visit Provider Student in an Organized Health Care Education/Training Program
DX: Z79.01 Long term (current) use of anticoagulants (principal)
CPT/HCPCS: 85610

== ENCOUNTER → 2021-11-12 09:44 | Outpatient (CLI) | payer OTHER, SELFPAY ==
[2021-11-12 10:40] LABS: INR 2.2 (0.9-1.3); Prothrombin Time 25.3 SECONDS (10.1-12.7)
== END ==
PROVIDERS: PCP Student in an Organized Health Care Education/Training Program; Referring Provider Student in an Organized Health Care Education/Training Program; Visit Provider Student in an Organized Health Care Education/Training Program
DX: Z79.01 Long term (current) use of anticoagulants (principal); I48.91 Unspecified atrial fibrillation
CPT/HCPCS: 36415; 85610

== ENCOUNTER → 2022-05-16 11:43 | Outpatient (ROUT) | payer OTHER, SELFPAY ==
[2022-05-16 11:49] LABS: INR 2.2 (0.9-1.3); Prothrombin Time 25.3 SECONDS (10.1-12.7)
== END ==
PROVIDERS: PCP Student in an Organized Health Care Education/Training Program; Visit Provider Registered Nurse
DX: Z79.01 Long term (current) use of anticoagulants (principal)
CPT/HCPCS: 85610

== ENCOUNTER → 2022-08-04 11:21 | Outpatient (ROUT) | payer OTHER, SELFPAY ==
[2022-08-04 11:44] LABS: INR 1.9 (0.9-1.3); Prothrombin Time 21.6 SECONDS (10.1-12.7)
== END ==
PROVIDERS: PCP Student in an Organized Health Care Education/Training Program; Visit Provider Registered Nurse
DX: Z79.01 Long term (current) use of anticoagulants (principal)
CPT/HCPCS: 85610

== ENCOUNTER → 2022-08-11 10:17 | Outpatient (ROUT) | payer OTHER, SELFPAY ==
[2022-08-11 10:25] LABS: Prothrombin Time 35.3 SECONDS (10.1-12.7)
== END ==
PROVIDERS: PCP Student in an Organized Health Care Education/Training Program; Visit Provider Registered Nurse
DX: I48.91 Unspecified atrial fibrillation (principal)
CPT/HCPCS: 85610

== ENCOUNTER → 2022-08-18 10:20 | Outpatient (ROUT) | payer OTHER, SELFPAY ==
[2022-08-18 11:04] LABS: INR 2.4 (0.9-1.3)
== END ==
PROVIDERS: PCP Student in an Organized Health Care Education/Training Program; Visit Provider Registered Nurse
DX: Z79.01 Long term (current) use of anticoagulants (principal)
CPT/HCPCS: 85610

== ENCOUNTER → 2022-08-25 10:11 | Outpatient (CLI) | payer OTHER, SELFPAY ==
[2022-08-25 11:17] LABS: Add Manual Diff / Slide Review NO; Basophils Absolute Auto 100 /uL (0-100); Basophils Percent Auto 1.1 % (0-2); Eosinophils Absolute Auto 400 /uL (0-450); Eosinophils Percent Auto 6.1 % (2-4); Hemoglobin 15.8 g/dL (13.5-17.5); Lymphocytes Absolute Auto 2400 /uL (1100-4500); Lymphocytes Percent Auto 39.6 % (25-40); Mean Corpuscular HGB Conc 33.6 % (30-36); Monocytes Absolute Auto 600 /uL (0-900); Monocytes Percent Auto 9.4 % (3-14); Neutrophils Absolute Auto 2600 /uL (1500-7000); Neutrophils Percent Auto 43.8 % (50-75); Platelet Count 83 X10^3/uL (150-400); Red Cell Distribution Width 15.8 % (11.6-14.8)
[2022-08-25 11:38] LABS: Alanine Aminotransferase 32 IU/L (<50); Albumin 3.4 g/dL (3.5-5.0); Alkaline Phosphatase 186 U/L (38-126); Aspartate Aminotransferase 56 IU/L (17-59); BUN Creatinine Ratio 13.8 (6-22); Bilirubin Total 1.5 mg/dL (0.2-1.3); Blood Urea Nitrogen 27 mg/dL (9-20); Calcium 8.6 mg/dL (8.4-10.2); Carbon Dioxide 25 mmol/L (22-32); Chloride 107 mmol/L (98-107); Estimated Glomerular Filt Rate 34 mL/min (>60); Globulin 3.4 g/dL (1.7-4.1); Glucose 64 mg/dL (80-110); HEMOLYSIS < 15 (0-50); Potassium 3.6 mmol/L (3.4-5.1); Sodium 141 mmol/L (137-145); Total Protein 6.8 g/dL (6.3-8.2)
== END ==
PROVIDERS: PCP Student in an Organized Health Care Education/Training Program; Referring Provider Physician Assistant; Visit Provider Physician Assistant
DX: I48.92 Unspecified atrial flutter (principal)
CPT/HCPCS: 36415; 80053; 85025

== ENCOUNTER → 2022-10-02 10:47 | Outpatient (ROUT) | payer OTHER, SELFPAY ==
[2022-10-02 11:10] LABS: INR 2.8 (0.9-1.3); Prothrombin Time 32.6 SECONDS (10.1-12.7)
== END ==
PROVIDERS: PCP Student in an Organized Health Care Education/Training Program; Visit Provider Registered Nurse
DX: Z79.01 Long term (current) use of anticoagulants (principal)
CPT/HCPCS: 85610

== ENCOUNTER → 2022-11-20 10:13 | Outpatient (ROUT) | payer OTHER, SELFPAY ==
[2022-11-20 10:22] LABS: INR 2.6 (0.9-1.3); Prothrombin Time 29.8 SECONDS (10.1-12.7)
== END ==
PROVIDERS: PCP Student in an Organized Health Care Education/Training Program; Visit Provider Registered Nurse
DX: I48.91 Unspecified atrial fibrillation (principal)
CPT/HCPCS: 85610

== ENCOUNTER → 2023-02-03 09:38 | Outpatient (ROUT) | payer OTHER, SELFPAY ==
[2023-02-03 09:59] LABS: INR 3.3 (0.9-1.3); Prothrombin Time 37.9 SECONDS (10.1-12.7)
== END ==
PROVIDERS: PCP Student in an Organized Health Care Education/Training Program; Visit Provider Registered Nurse
DX: I48.91 Unspecified atrial fibrillation (principal)
CPT/HCPCS: 85610

== ENCOUNTER → 2023-02-10 12:49 | Outpatient (CLI) | payer OTHER, SELFPAY ==
--- NOTE | 2023-02-10 12:51 | DI.RAD.S_ITS ---
PROCEDURE: XR KNEE RT 3V INDICATIONS: LATERAL RIGHT KNEE PAIN TECHNIQUE: 3 views of the knee were acquired. COMPARISON: None. FINDINGS: Bones: No fractures or dislocations. No suspicious bony lesions. Mild to moderate tricompartmental osteoarthritis. Soft tissues: Moderate-sized suprapatellar No suspicious soft tissue calcifications. IMPRESSION: No fracture. No acute osseous lesion. If symptoms and/or clinical suspicion for pathology persists, further assessment with advanced imaging (e.g. CT, MRI or bone scan) should be considered. Nonspecific joint effusion. Dictated by: Ara Nye MD, PhD on 02/10/2023 at 13:27 Approved by: Ara Nye MD, PhD on 02/10/2023 at 13:28
== END ==
PROVIDERS: PCP Registered Nurse; Referring Provider Registered Nurse; Visit Provider Registered Nurse
DX: M17.11 Unilateral primary osteoarthritis, right knee (principal); M25.561 Pain in right knee
CPT/HCPCS: 73562

== ENCOUNTER 2023-05-15 13:32 | Emergency (ER) | payer OTHER, SELFPAY ==
[2023-05-15 13:36] VITALS: BP 144/70; PULSE 60; RESP 14; TEMP 35.8; O2SAT 99; BMI 25.0
--- NOTE | 2023-05-15 13:46 | DI.US.S_ITS ---
PROCEDURE: US ABDOMEN LIMITED INDICATIONS: hernia rule out TECHNIQUE: Real-time focused scanning was performed of the abdomen, with image documentation. COMPARISON: [facility], , US ABDOMEN LIMITED, 04/27/2020, 15:09. FINDINGS: A bowel or omentum containing hernia is not seen. There is a small amount of ascites seen at all 4 quadrants over the abdomen and pelvis. There is a fluid-filled hernia sac involving the right groin area. IMPRESSION: Fluid-filled hernia sac involving the right groin area without internal omentum or bowel identified. Mild ascites over the abdomen and pelvis, all 4 quadrants. Depending on the clinical status follow-up by CT scanning with oral and intravenous contrast may be warranted for more accurate assessment. Dictated by: Dev Zelaya M.D. on 05/15/2023 at 14:49 Approved by: Dev Zelaya M.D. on 05/15/2023 at 14:51
== END 2023-05-15 15:25 | disposition left against medical advice (07) ==
PROVIDERS: Emergency Provider Emergency Medicine; PCP Registered Nurse
DX: R10.9 Unspecified abdominal pain (principal)
CPT/HCPCS: 76705; 99281

== ENCOUNTER → 2023-06-11 17:30 | Outpatient (ROUT) | payer OTHER, SELFPAY ==
[2023-06-11 17:54] LABS: INR 2.6 (0.9-1.3); Prothrombin Time 30.7 SECONDS (9.4-12.5)
[2023-06-11 17:56] LABS: PTT Partial Thromboplastin Tim 49 SECONDS (25.1-36.5)
== END ==
PROVIDERS: PCP Registered Nurse; Visit Provider Registered Nurse
DX: R23.3 Spontaneous ecchymoses (principal); R18.8 Other ascites
CPT/HCPCS: 85610; 85730

== ENCOUNTER → 2023-06-17 12:27 | Outpatient (CLI) | payer OTHER, SELFPAY ==
--- NOTE | 2023-06-17 | DI.CT.S_ITS ---
PROCEDURE: CT ABDOMEN PELVIS W CON INDICATIONS: ASCITES TECHNIQUE: After the administration of intravenous contrast, axial sections acquired from the lung bases to the pubic symphysis. Coronal and sagittal reformats were performed. For radiation dose reduction, the following was used: automated exposure control, adjustment of mA and/or kV according to patient size. COMPARISON: [facility], CT, ABDOMEN/PELVIS WITH CONTRAST, 05/19/2016, 9:07. FINDINGS: Image quality: Diagnostic. Lower Chest: Cardiomegaly. Cardiac leads. Diffuse esophageal thickening. ABDOMEN: Liver: Cirrhosis. Single phase contrast evaluation is suboptimal for detection of hepatocellular carcinoma. No large mass identified. Patent portal vein. Gallbladder: Cholecystectomy. Biliary ducts: No biliary dilation. Pancreas: No ductal dilation. Spleen: Size is within normal limits. Adrenal Glands: No adrenal nodules. Kidneys and Ureters: No hydronephrosis. No solid mass. No complex renal cystic lesion which requires follow up. Stomach and Bowel: Normal colonic caliber, without significant wall thickening. Colonic diverticulosis without evidence of diverticulitis. Peritoneum: Moderate volume ascites. Ventral Wall: No hernia. Abdominal Nodes: No retroperitoneal or mesenteric adenopathy by size criteria. Prominent gastrohepatic lymph nodes, nonspecific in the presence of cirrhosis. Vessels: Aorta and inferior vena cava are normal in size. PELVIS: Pelvic Organs: Unremarkable. Bladder: Unremarkable. Pelvic Nodes: No enlarged lymph nodes. Miscellaneous: Moderate size right inguinal hernia containing fat and ascites. Bones: No aggressive osseous abnormality. IMPRESSION: Cirrhosis. Single phase contrast evaluation is suboptimal for detection of hepatocellular carcinoma. No large mass identified. Patent portal vein. Moderate volume ascites. Moderate right inguinal hernia containing fat and ascites. Diffuse esophageal wall thickening. Correlate with symptoms of esophagitis. Dictated by: Tiburcio Steel M.D. on 06/17/2023 at 16:18 Approved by: Tiburcio Steel M.D. on 06/17/2023 at 16:22
== END ==
LOC: CT 12:28
PROVIDERS: PCP Registered Nurse; Referring Provider Registered Nurse; Visit Provider Registered Nurse
DX: K74.60 Unspecified cirrhosis of liver (principal); R18.8 Other ascites; K40.90 Unilateral inguinal hernia, without obstruction or gangrene, not specified as recurrent
CPT/HCPCS: 74177; Q9967

== ENCOUNTER → 2023-06-22 08:25 | Outpatient (CLI) | payer OTHER, SELFPAY ==
--- NOTE | 2023-06-22 | PATH_ITS ---
Note [facility] Accession Number: [id number] TESTS RESULT FLAG UNITS REF RANGE LAB Clinician Provided Cytology Information No. of containers..01 Other (Miscellaneous) Source: ASCITES DIAGNOSIS: 01 ASCITES NEGATIVE FOR MALIGNANT CELLS. THIS INTERPRETATION INCLUDES EVALUATION OF A CELL BLOCK. Pathologist ICD10: R18.8 Signed out by: Kamila García MD, Pathologist NPI- [id number] Performed by: Jadiel Curiel, Bicycle Mechanic ([facility]) Gross description: 65 CC, YELLOW, CLOUDY RECEIVED: FRESH IN BLUE CAP CONTAINER.VO /VDU 06/23/2023 0759 Local FLAG LEGEND: L-Low Normal,H-High Normal,LL-Alert Low,HH-Alert High <-Panic Low,>-Panic High,A-Abnormal,AA-Critical Abnormal Performed at: 01 =Z [facility] Cytology [address], [place] [address] Jean-Claude Rico MD, Specimen Comment: A courtesy copy of this report has been sent to [facility] Specimen Comment: Clinic Performed at: 01 [facility] Cytology [address], [place], [place] [id number] MD Jean-Claude Rico MD Phone: [phone]
--- NOTE | 2023-06-22 08:27 | DI.US.S_ITS ---
PROCEDURE: US PARACENTESIS INDICATIONS: ASCITES TECHNIQUE: The indications, alternatives, benefits, risks, and complications of the procedure were explained to the patient. Written informed consent was obtained and placed in the chart. The abdomen and pelvis were examined sonographically, and an appropriate site was chosen for paracentesis. The skin was prepared and draped in the usual sterile fashion, and 1% lidocaine was infiltrated from the skin down through the peritoneal surface. A 19-gauge catheter-covered needle was then introduced into the peritoneal space, the catheter was advanced and the needle was withdrawn, and thereafter peritoneal fluid was withdrawn. The catheter was then removed and a dressing was applied. The fluid was discarded if the clinician did not order diagnostic testing of the fluid. COMPARISON: None. FINDINGS: Access site: Right lateral abdominal wall Needle: One-Step centesis catheter with introducer needle. Fluid volume and description: 4960 milliliter clear yellow fluid Fluid sent for diagnostic testing: Yes Medications: 1% lidocaine for local anaesthesia. Complications: None. IMPRESSION: Successful ultrasound-guided paracentesis. Dictated by: Tiburcio Steel M.D. on 06/22/2023 at 12:11 Approved by: Tiburcio Steel M.D. on 06/22/2023 at 12:13
== END ==
LOC: US 08:26
PROVIDERS: PCP Registered Nurse; Referring Provider Registered Nurse; Visit Provider Registered Nurse
DX: R18.8 Other ascites (principal); K74.60 Unspecified cirrhosis of liver
CPT/HCPCS: 49083

== ENCOUNTER 2023-07-01 14:24 | Observation (INO) | payer OTHER, SELFPAY ==
[2023-07-01] VITALS (16 sets, daily range): BP systolic 122–168; BP diastolic 65–79; PULSE 59–62; RESP 16–30; TEMP 36.2–36.7; O2SAT 94–100; BMI 28.1
--- NOTE | 2023-07-01 14:32 | ED.GENADULT ---
HPI - General Adult General Chief complaint: Diabetic Problem Stated complaint: Hypoglycemic Time Seen by Provider: 07/01/23 14:26 History of Present Illness HPI narrative: 83yoM wtih PMH ascites, IDDM, HTN, R inguinal hernia Presents by EMS from home for low blood sugar. Patient is scheduled to talk about hernia repair surgery with Dr. Guillaume tomorrow. noted that the patient seems somewhat confused and called 911. His blood sugar was measured at 39 by medics. They gave oral glucose but he was persistent the hypoglycemic and so they decided to start D10 and transfer him to the emergency department for evaluation. On arrival patient stated that he thinks he may have accidentally taken too much insulin. Glipizide is noted on patient's AUG. Related Data Home Medications Medication Instructions Recorded Confirmed pravastatin 40 mg tablet 40 mg PO QPM 10/19/18 07/02/23 empagliflozin 10 mg tablet 10 mg PO DAILY 07/01/23 07/02/23 (Jardiance) coenzyme Q10 100 mg capsule 300 mg PO DAILY 07/02/23 07/02/23 glipizide 10 mg tablet 10 mg PO DAILY 07/02/23 07/02/23 insulin NPH isoph U-100 human 100 30 unit SUBCUT BID 07/02/23 07/02/23 unit/mL subcutaneous suspension (Humulin N NPH U-100 Insulin (isophane susp)) metoprolol succinate 25 mg 12.5 mg PO BID 07/02/23 07/02/23 tablet,extended release 24 hr warfarin 1 mg tablet 1 mg PO DAILY 07/02/23 07/02/23 warfarin 5 mg tablet 5 mg PO DAILY 07/02/23 07/02/23 Previous Rx's Medication Instructions Recorded furosemide 20 mg tablet 10 mg (1/2 x 20 mg) PO DAILY 60 07/02/23 days #30 tabs Allergies Allergy/AdvReac Type Severity Reaction Status Date / Time No Known Drug Allergies Allergy Verified 07/02/23 13:12 Review of Systems Review of Systems Narrative: Negative except as noted above Patient History Medical History Hypertension Diabetes Social History household members: friend(s) Smoking Status: Never smoker alcohol intake: current Smoking Status: Never smoker alcohol intake frequency: 0-2 drinks per day Substance Use Type: does not use Exam Initial Vital Signs Initial Vital Signs: Vital Signs Pulse Oximetry 95 07/01/23 14:35 Const: Awake, alert, frail Cardiac: regular rate, regular rhythm RESP: unlabored, clear bilaterally, no wheezing GI: Distended, positive fluid wave : Right-sided inguinal hernia present, soft, no overlying erythema MSK: Atraumatic, full range of motion, pulses equal Skin: Warm, Dry, intact, no rashes Neuro: AO x3, CN II-XII grossly intact, moves all extremities Course Orders Ordered: Discontinued Medications Hydrocodone Bitart/Acetaminophen (Hydrocodone/Acet 5/325 Tablet) 1 tab PO Q4H PRN PRN Reason: Pain, Moderate (4-6) Last Admin: 07/02/23 09:35 Dose: 1 tab Documented By: Admin: 07/01/23 21:53 Dose: 1 tab Documented By: LEONARD Bisacodyl (Bisacodyl 10 Mg Supp) 10 mg SD DAILY PRN PRN Reason: Constipation Heparin Sodium (Porcine) (Heparin 5,000 Unit/Ml Vial) 5,000 unit SUBCUT BID [facility] Last Admin: 07/02/23 09:34 Dose: 5,000 unit Documented By: Admin: 07/01/23 21:12 Dose: 5,000 unit Documented By: BRANDI Dextrose (D10w) 1,000 mls @ 75 mls/hr IV NOW ONE Stop: 07/02/23 04:09 Last Infusion: 07/01/23 18:41 Dose: Infused Documented By: Infusion: 07/01/23 16:27 Dose: 0 mls/hr Documented By: Admin: 07/01/23 14:57 Dose: 75 mls/hr Documented By: PATY Naloxone HCl (Naloxone 0.4 Mg/Ml Vial) 0.2 mg IV Q2MIN PRN PRN Reason: Opiate Reversal Ondansetron HCl (Ondansetron 4 Mg/2 Ml Inj) 4 mg IV Q8HR PRN PRN Reason: Nausea And Vomiting Sennosides (Sennosides 8.6 Mg Tablet) 17.2 mg PO BEDTIME [facility] Last Admin: 07/01/23 21:12 Dose: 17.2 mg Documented By: BRANDI Sodium Chloride (Sodium Chloride 0.9% Flush) 10 ml IV PRN PRN PRN Reason: Flush Sodium Chloride (Sodium Chloride 0.9% Flush) 10 ml IV BID TASHA Last Admin: 07/02/23 09:34 Dose: 10 ml Documented By: Vital Signs Vital signs: Vital Signs - 8 hr 07/01/23 14:35 07/01/23 14:39 07/01/23 14:42 Temperature 97.6 F Pulse Rate 61 Respiratory Rate 16 Blood Pressure 124/75 124/75 Pulse Oximetry 95 100 Oxygen Delivery Method Room Air 07/01/23 14:42 07/01/23 15:00 07/01/23 15:00 Temperature Pulse Rate 62 60 Respiratory Rate 27 H 27 H Blood Pressure 137/65 Pulse Oximetry 95 94 Oxygen Delivery Method 07/01/23 15:30 07/01/23 15:30 07/01/23 16:00 Temperature Pulse Rate 60 Respiratory Rate 24 Blood Pressure 135/67 135/69 Pulse Oximetry 98 Oxygen Delivery Method 07/01/23 16:00 07/01/23 16:30 07/01/23 16:30 Temperature Pulse Rate 60 60 Respiratory Rate 22 28 H Blood Pressure 159/78 H Pulse Oximetry 99 99 Oxygen Delivery Method 07/01/23 17:00 07/01/23 17:01 07/01/23 17:01 Temperature Pulse Rate 60 60 Respiratory Rate 25 H 25 H Blood Pressure 128/67 Pulse Oximetry 98 97 Oxygen Delivery Method 07/01/23 17:30 07/01/23 17:30 Temperature Pulse Rate 60 Respiratory Rate 30 H Blood Pressure 128/70 Pulse Oximetry 98 Oxygen Delivery Method Medical Decision Making Differential Diagnosis Differential Diagnosis: Hypoglycemia, hyperglycemia, medication overdose Lab Data 07/02/23 05:05 07/02/23 05:05 Labs: Lab Results 07/01/23 07/01/23 07/01/23 Range/Units 14:57 16:15 16:25 WBC 4.8 (4.5-11.0) X10^3/uL RBC 4.71 (4.5-5.9) X10^6/uL Hgb 14.7 (13.5-17.5) g/dL Hct 44.5 (41-53) % MCV 94.4 (80-100) fL MCH 31.2 (26-34) PG MCHC 33.0 (30-36) % RDW 16.7 H (11.6-14.8) % Plt Count 166 (150-400) X10^3/uL Neut % (Auto) 64.1 (50-75) % Lymph % (Auto) 21.0 L (25-40) % [place] % (Auto) 11.1 (3-14) % Eos % (Auto) 2.9 (2-4) % Baso % (Auto) 0.9 (0-2) % Neut # (Auto) 3100 (2755-9392) /uL Lymph # (Auto) 1000 L (1802-6213) /uL [place] # (Auto) 500 (0-900) /uL Eos # (Auto) 100 (0-450) /uL Baso # (Auto) 0 (0-100) /uL PT 36.8 H (9.4-12.5) SECONDS INR 3.2 H (0.9-1.3) Sodium 134 L (137-145) mmol/L Potassium 3.6 (3.4-5.1) mmol/L Chloride 105 (98-107) mmol/L Carbon Dioxide 23 (22-32) mmol/L BUN 26 H (9-20) mg/dL Creatinine 1.69 H (0.66-1.25) mg/dL Estimated GFR 40 L (>60) mL/min BUN/Creatinine Ratio 15.4 (6-22) Glucose 116 H (80-110) mg/dL Calcium 8.4 (8.4-10.2) mg/dL Total Bilirubin 1.0 (0.2-1.3) mg/dL AST 56 (17-59) IU/L ALT 28 (<50) IU/L Alkaline Phosphatase 143 H (38-126) U/L Total Protein 6.0 L (6.3-8.2) g/dL Albumin 2.8 L (3.5-5.0) g/dL Globulin 3.2 (1.7-4.1) g/dL Albumin/Globulin Ratio 0.9 L (1.0-2.8) Urine Color Yellow Urine Appearance Clear Urine pH 5.0 (4.5-8.0) Ur Specific [place] 1.025 (1.000-1.035) Urine Protein Negative (Negative) Urine Glucose (UA) 2+ H (Negative) g/dL Urine Ketones Negative (NEGATIVE) Urine Occult Blood Trace-intact (Negative) Urine Nitrate Negative (Negative) Urine Bilirubin Negative (NEGATIVE) Urine Urobilinogen 0.2 (0.2) E.U./dL Ur Leukocyte Esterase Negative (NEGATIVE) Urine RBC 0-1/hpf (0-5/HPF) Urine WBC 1-5/hpf (0-5/HPF) Ur Squamous Epith Cells 0-1 /hpf (0-5/HPF) Urine Bacteria None seen (None) Hyaline Casts 1-5/lpf (None) Ur Culture Indicated? Cult not indicated Vol Urine Centrifuged 10ml (spun) Point of Care Testing Glucose POC 111 Point of care testing: Point of Care Testing Glucose POC 111 MDM Narrative Medical decision making narrative: Recurrent hypoglycemia in patient who is on sulfonylurea and possible accidental insulin overdose. Abdomen is distended with positive fluid wave, patient has history of recent paracentesis with removal of fluid. He reports ongoing right-sided hernia pain, patient had CT obtained 06/17/2023 that confirmed a right-sided hernia and ascites. Patient is trying to arrange General surgery consult to talk about fixing the hernia to improve his pain. Patient remained on D10, but after D10 was stopped he continued to have decreasing blood glucose. Family at [facility] state they are not equipped at home to monitor patient's blood glucose so closely. Patient to be admitted for observation for recurrent hypoglycemia Critical Care Time Critical Care Time Critical Care Time: Yes Total Critical Care Time: 32 Attestation: Recurrent hypoglycemia requiring frequent checks, D10 Discharge Plan Departure Patient Disposition: Admitted as Observation Clinical Impression: Hypoglycemia Admit Date/Time: 07/01/23 18:12 Admit Provider: Mckinley Barr
[2023-07-01] MEDS: DEXTROSE 10 % IN WATER 1,000 ML 75 ML IV (14:57)
[2023-07-01 15:02] LABS: Urine Volume 10mL (spun)
[2023-07-01 15:03] LABS: Appearance Urine UA CLEAR; Bilirubin Urine UA NEGATIVE (NEGATIVE); Color Urine UA YELLOW; Glucose Urine UA 2+ g/dL (Negative); Ketones Urine UA NEGATIVE (NEGATIVE); Leukocyte Esterase Urine UA NEGATIVE (NEGATIVE); Nitrite Urine UA NEGATIVE (Negative); Occult Blood Urine UA TRACE-INTACT (Negative); Protein Urine UA NEGATIVE (Negative); Specific Gravity Urine UA 1.025 (1.000-1.035); Urobilinogen Urine UA 0.2 E.U./dL (0.2)
[2023-07-01 15:11] LABS: Bacteria Urine None Seen; Hyaline Casts Urine 1-5/LPF; RBC Urine 0-1/HPF (0-5/HPF); Squamous Epithelial Cell Urine 0-1 /HPF (0-5/HPF); WBC Urine 1-5/HPF (0-5/HPF)
[2023-07-01 15:12] LABS: Culture Indicated Urine Cult Not Indicated
[2023-07-01 16:36] LABS: Add Manual Diff / Slide Review NO; Basophils Absolute Auto 0 /uL (0-100); Basophils Percent Auto 0.9 % (0-2); Eosinophils Absolute Auto 100 /uL (0-450); Eosinophils Percent Auto 2.9 % (2-4); Hematocrit 44.5 % (41-53); Hemoglobin 14.7 g/dL (13.5-17.5); Lymphocytes Absolute Auto 1000 /uL (1100-4500); Mean Corpuscular Hemoglobin 31.2 PG (26-34); Mean Corpuscular Volume 94.4 fL (80-100); Monocytes Absolute Auto 500 /uL (0-900); Monocytes Percent Auto 11.1 % (3-14); Neutrophils Absolute Auto 3100 /uL (1500-7000); Neutrophils Percent Auto 64.1 % (50-75); Platelet Count 166 X10^3/uL (150-400); Red Blood Cell Count 4.71 X10^6/uL (4.5-5.9); Red Cell Distribution Width 16.7 % (11.6-14.8); White Blood Cell Count 4.8 X10^3/uL (4.5-11.0)
[2023-07-01 16:49] LABS: Alanine Aminotransferase 28 IU/L (<50); Albumin 2.8 g/dL (3.5-5.0); Albumin Globulin Ratio 0.9 (1.0-2.8); Alkaline Phosphatase 143 U/L (38-126); Aspartate Aminotransferase 56 IU/L (17-59); BUN Creatinine Ratio 15.4 (6-22); Blood Urea Nitrogen 26 mg/dL (9-20); Calcium 8.4 mg/dL (8.4-10.2); Carbon Dioxide 23 mmol/L (22-32); Chloride 105 mmol/L (98-107); Estimated Glomerular Filt Rate 40 mL/min (>60); Globulin 3.2 g/dL (1.7-4.1); Glucose 116 mg/dL (80-110); HEMOLYSIS < 15 (0-50); Potassium 3.6 mmol/L (3.4-5.1); Sodium 134 mmol/L (137-145)
--- NOTE | 2023-07-01 18:25 | P.HP_ITS ---
History of Present Illness History of Present Illness Date Patient Seen: 07/01/23 Time Patient Seen: 18:25 Chief complaint: Hypoglycemic Narrative: The patient is an 83-year-old male with a relatively new diagnosis of ascites of unclear etiology, insulin-dependent diabetes, hypertension, and a right inguinal hernia. The patient has had intermittent confusion and hypoglycemia for several days. Today he was profoundly confused in his daughter came to his house and found him with a glucose of 39. Medics were called he was given dextrose in the field. He was transported to the ED where he has had recurrent hypoglycemia requiring dextrose infusion. He lives with his , and a son. His son usually helps out but was not available today. His daughter lives nearby. He denies any mix up with his medications. He notes that his 1st paracentesis was 1 week ago for 3 L. Studies were taken with no results reported to the patient. Pathology is reviewed today and is negative for malignant cells. The patient also has a history of diastolic heart failure, chronic kidney disease, aortic stenosis, remote sick sinus syndrome with a dual-chamber pacemaker placed in 2020, and persistent atrial fibrillation. He is on chronic warfarin. Other than his new recurrent ascites, he denies any recent changes in how he has been feeling. He does have mild edema of the legs. He denies any abdominal pain other than the discomfort of the tense ascites. He denies shortness of breath other than some displacement orthopnea. He also denies any chest pain, palpitations, recent fevers or chills. He denies a history of regular alcohol use. An abdominal CT scan indicate cirrhosis, with a single phase contrast evaluation for detection of HCC. No masses identified. His portal vein was patent. He would moderate volume ascites as well as a right inguinal hernia and diffuse esophageal wall thickening. Abdominal ultrasound from May of 2023 reveals ascites in the hernia. In looking back to a CT scan from April 2020, the patient had cirrhosis of the liver identified at that time. [facility] Medical History Hypertension Diabetes Social History Smoking Status: Never smoker Meds Home Medications and Allergies Home Medications Medication Instructions Recorded Confirmed Type aspirin 81 mg tablet,delayed 81 mg PO QPM ##0 03/28/06 10/19/18 History release Focus Factor 1 dose PO DAILY 10/19/18 10/19/18 History glipizide 10 mg tablet 10 mg PO DAILY 10/19/18 08/08/19 History insulin NPH isoph U-100 human 100 40 units SUBCUT BID 10/19/18 10/19/18 History unit/mL subcutaneous suspension (Humulin N NPH U-100 Insulin (isophane susp)) lisinopril 10 mg tablet 10 mg PO QPM 10/19/18 08/08/19 History metoprolol succinate 50 mg 50 mg PO DAILY 10/19/18 10/19/18 History tablet,extended release 24 hr pravastatin 40 mg tablet 40 mg PO QPM 10/19/18 08/08/19 History Allergies Allergy/AdvReac Type Severity Reaction Status Date / Time No Known Drug Allergies Allergy Verified 05/15/23 13:36 Review of Systems Review of Systems Narrative: All else reviewed and otherwise noncontributory other than as noted in history and physical. Exam Vital Signs (past 8 hours): - 07/01/23 14:35 07/01/23 14:39 07/01/23 14:42 Temperature 97.6 F Pulse Rate 61 Respiratory Rate 16 Blood Pressure 124/75 124/75 Pulse Oximetry 95 100 Oxygen Delivery Method Room Air 07/01/23 14:42 07/01/23 15:00 07/01/23 15:00 Temperature Pulse Rate 62 60 Respiratory Rate 27 H 27 H Blood Pressure 137/65 Pulse Oximetry 95 94 Oxygen Delivery Method 07/01/23 15:30 07/01/23 15:30 07/01/23 16:00 Temperature Pulse Rate 60 Respiratory Rate 24 Blood Pressure 135/67 135/69 Pulse Oximetry 98 Oxygen Delivery Method 07/01/23 16:00 07/01/23 16:30 07/01/23 16:30 Temperature Pulse Rate 60 60 Respiratory Rate 22 28 H Blood Pressure 159/78 H Pulse Oximetry 99 99 Oxygen Delivery Method 07/01/23 17:00 07/01/23 17:01 07/01/23 17:01 Temperature Pulse Rate 60 60 Respiratory Rate 25 H 25 H Blood Pressure 128/67 Pulse Oximetry 98 97 Oxygen Delivery Method 07/01/23 17:30 07/01/23 17:30 Temperature Pulse Rate 60 Respiratory Rate 30 H Blood Pressure 128/70 Pulse Oximetry 98 Oxygen Delivery Method Oxygen Delivery Method Room Air Narrative Exam Narrative: Alert and oriented x3, somewhat slow to process information and answer questions. Relatively calm. He appears chronically ill with gross ascites and some peripheral atrophy. Normocephalic skull. Anicteric sclera, EOMI, symmetric pupils. Unremarkable oropharynx without droop. Mucosa unremarkable. Neck supple, normal JVP, no adenopathy. Lungs are clear, normal rate and effort. Heart is irregular. No murmur. Abdomen is tense with ascites but nontender. Dull to percussion. Extremities with 1+ edema. Skin is notable for excoriations but no overt rash. Joints are not swollen or deformed. Abnormal affect and judgment. Objective Labs 07/01/23 16:25 07/01/23 16:25 Labs: Laboratory Results - last 24 hr 07/01/23 07/01/23 14:57 16:25 WBC 4.8 RBC 4.71 Hgb 14.7 Hct 44.5 MCV 94.4 MCH 31.2 MCHC 33.0 RDW 16.7 H Plt Count 166 Neut % (Auto) 64.1 Lymph % (Auto) 21.0 L [place] % (Auto) 11.1 Eos % (Auto) 2.9 Baso % (Auto) 0.9 Neut # (Auto) 3100 Lymph # (Auto) 1000 L [place] # (Auto) 500 Eos # (Auto) 100 Baso # (Auto) 0 Sodium 134 L Potassium 3.6 Chloride 105 Carbon Dioxide 23 BUN 26 H Creatinine 1.69 H Estimated GFR 40 L BUN/Creatinine Ratio 15.4 Glucose 116 H Calcium 8.4 Total Bilirubin 1.0 AST 56 ALT 28 Alkaline Phosphatase 143 H Total Protein 6.0 L Albumin 2.8 L Globulin 3.2 Albumin/Globulin Ratio 0.9 L Urine Color Yellow Urine Appearance Clear Urine pH 5.0 Ur Specific [place] 1.025 Urine Protein Negative Urine Glucose (UA) 2+ H Urine Ketones Negative Urine Occult Blood Trace-intact Urine Nitrate Negative Urine Bilirubin Negative Urine Urobilinogen 0.2 Ur Leukocyte Esterase Negative Urine RBC 0-1/hpf Urine WBC 1-5/hpf Ur Squamous Epith Cells 0-1 /hpf Urine Bacteria None seen Hyaline Casts 1-5/lpf Ur Culture Indicated? Cult not indicated Vol Urine Centrifuged 10ml (spun) Assessment & Plan Assessment & Plan narrative: 1. Persistent hypoglycemia in a diabetic who takes insulin as well as glipizide and Jardiance. Present on admission and active. 2. Acute metabolic encephalopathy secondary to hypoglycemia, present on admission and active. 3. Recurrent gross ascites secondary to cirrhosis which is chronic and of unknown etiology, present on admission and active. 4. Essential hypertension, present on admission and active. 5. Permanent atrial fibrillation, present on admission and active. 6. Chronic anticoagulation with warfarin, present on admission and active. 7. Aortic stenosis, present on admission and active. Plan: -will run dextrose infusion overnight and hold all medications. We will wean dextrose in the morning and see if the patient has recurrent hypoglycemia. -hold oral antidiabetic agents as well as insulin for tonight. -hold warfarin and check INR in the morning. -arrange for paracentesis for comfort and to rerun cytology tomorrow. Patient is full resuscitation, discussed the time of admission. His , Berenice, is proxy for healthcare decisions. Time Spent With Patient Time with patient: 30 to 49 minutes with 50% spent counseling/coordinating care Quality MIPS - Admit I confirm the patient?s Advance Care Plan is present, Code status is documented, Surrogate decision maker is in patient?s record [If Yes, STOP here]: Yes [facility] - Meds 'Current medications' to include all prescriptions, [id number] products, herbals, cannabis/cannabidiol products, and vitamin/mineral/dietary (nutritional) supplements. I have utilized all available resources to obtain, update, or review the patient?s current medications. [If Yes, STOP here]: Yes
[2023-07-01 21:10] LABS: INR 3.2 (0.9-1.3); Prothrombin Time 36.8 SECONDS (9.4-12.5)
[2023-07-01] MEDS: HEPARIN 5,000 UNIT/ML VIAL 5000 UNIT SUBCUT (21:12)
[2023-07-01] MEDS: SENNOSIDES 8.6 MG TABLET 17.2 MG PO (21:12)
[2023-07-01] MEDS: HYDROCODONE/ACET 5/325 TABLET 1 TAB PO (21:53)
--- NOTE | 2023-07-01 23:13 | PC.NURSE ---
Patient is alert and mostly oriented; did not know day of month, day of week or why he is in the hospital. Breath sounds CTA with RA sat of 97%. Has persistent, non-productive cough. HRR but telemetry reading per [employer]HALT ROLLER OPERATOR was afib CVR and v-paced. BP elevated at 144/66. Denied nausea. BT absent and abdomen is large and tight. Burning pain in right groin from hernia; medicated with Vicodin with reduction in pain. Voiding per urinal and denied any dysuria. Is able to move himself in bed. Has not been out of bed as yet so gait/strength not assessed but patient states he has been weaker in bilateral LE. Bilateral calf SCD's applied. CBG is being checked q1h and has been ranging 64-70 despite eating 3 sandwich, 2 applesauce + orange juice and crackers. Dr. Jarrell has been contacted and wanted to just observe for now. Margaret, coordinator aware of CBG and MD response. Fall risk score is high and bed alarm is activated.
[2023-07-02 03:00] VITALS: BP 110/60; PULSE 63; RESP 17; TEMP 35.9; O2SAT 96
[2023-07-02 05:44] LABS: Add Manual Diff / Slide Review NO; Basophils Absolute Auto 100 /uL (0-100); Basophils Percent Auto 1.2 % (0-2); Eosinophils Absolute Auto 200 /uL (0-450); Eosinophils Percent Auto 3.8 % (2-4); Hematocrit 40.4 % (41-53); Hemoglobin 13.8 g/dL (13.5-17.5); Lymphocytes Absolute Auto 1400 /uL (1100-4500); Lymphocytes Percent Auto 25.6 % (25-40); Mean Corpuscular HGB Conc 34.1 % (30-36); Mean Corpuscular Hemoglobin 31.1 PG (26-34); Mean Corpuscular Volume 91.3 fL (80-100); Monocytes Absolute Auto 600 /uL (0-900); Monocytes Percent Auto 11.2 % (3-14); Neutrophils Absolute Auto 3200 /uL (1500-7000); Neutrophils Percent Auto 58.2 % (50-75); Platelet Count 159 X10^3/uL (150-400); Red Blood Cell Count 4.42 X10^6/uL (4.5-5.9); Red Cell Distribution Width 16.4 % (11.6-14.8); White Blood Cell Count 5.6 X10^3/uL (4.5-11.0)
[2023-07-02 05:51] LABS: INR 3.9 (0.9-1.3); Prothrombin Time 45.9 SECONDS (9.4-12.5)
[2023-07-02 05:59] LABS: Alanine Aminotransferase 26 IU/L (<50); Albumin 2.4 g/dL (3.5-5.0); Albumin Globulin Ratio 0.8 (1.0-2.8); Alkaline Phosphatase 156 U/L (38-126); Aspartate Aminotransferase 54 IU/L (17-59); BUN Creatinine Ratio 15.1 (6-22); Blood Urea Nitrogen 25 mg/dL (9-20); Calcium 8.2 mg/dL (8.4-10.2); Carbon Dioxide 23 mmol/L (22-32); Chloride 106 mmol/L (98-107); Estimated Glomerular Filt Rate 41 mL/min (>60); Glucose 136 mg/dL (80-110); HEMOLYSIS < 15 (0-50); Potassium 3.9 mmol/L (3.4-5.1); Sodium 135 mmol/L (137-145); Total Protein 5.4 g/dL (6.3-8.2)
[2023-07-02 07:00] VITALS: BP 126/67; PULSE 60; RESP 16; TEMP 36.7; O2SAT 100
[2023-07-02] MEDS: HEPARIN 5,000 UNIT/ML VIAL 5000 UNIT SUBCUT (09:34)
[2023-07-02] MEDS: SODIUM CHLORIDE 0.9% FLUSH 10 ML IV (09:34)
[2023-07-02] MEDS: HYDROCODONE/ACET 5/325 TABLET 1 TAB PO (09:35)
--- NOTE | 2023-07-02 10:43 | CM.DANOTE ---
Initial DCP Assessment Note Pt is an 83 yo male, resident of [place], presents via EMS with complaint of days of confusion and hypoglycemia. Patient admitted for monitoring and will likely be discharged today according to Dr Carter, if blood sugars continue to improve PCP: Marilee Montero Payer: Segundo JARVIS Reviewed chart, met w/patient, his daughter Kamala and spouse Berenice P [phone] via speaker phone. Patient lives with spouse and their son Darek. Son available to assist his parents physically as needed. Daughter Kamala P [phone] from patient/family. Patient is indp in all regards, does not use AD. Patient has no hx of HH or SNF. Patient and family deny needs from this CM team currently. No barriers identified at this time to patient's safe discharge home w/family to assist; close outpatient f/u recommended. CM team will plan to follow closely in case any DC needs or concerns arise. LUCILA Miguel Discharge Planning/Care Management CM Discharge Assessment Start: 07/02/23 10:40 Freq: Status: Active Protocol: Document 07/02/23 10:41 OSEI (Rec: 07/02/23 10:43 OSEI [id number]) Discharge Planning Assessment Assigned Industrial Electrical Technician LUCILA Palumbo/Assigned Designee Name Sahil Pearce, son/DPOA Contact Information [phone] Advance Directives? Yes Advance Directives on File No History Provided By Patient,Significant Other, Medical Record Prior Living Arrangements House Household Members friend(s) Type of transporation used prior to Drives own vehicle admit Independent with ADL's Yes Is patient alert and oriented? Yes Barriers to Discharge No Discharge Plan Home Transportation Arrangement Friends or family Referrals Initiated None needed
[2023-07-02 11:00] VITALS: BP 128/60; PULSE 61; RESP 16; TEMP 35.7; O2SAT 96
--- NOTE | 2023-07-02 11:14 | PM.DS.1 ---
History of Present Illness History of Present Illness Date Patient Seen: 07/02/23 Time Patient Seen: 11:15 Chief complaint: Hypoglycemic Narrative: The patient is an 83-year-old male with a relatively new diagnosis of ascites of unclear etiology, insulin-dependent diabetes, hypertension, and a right inguinal hernia. The patient has had intermittent confusion and hypoglycemia for several days. Today he was profoundly confused in his daughter came to his house and found him with a glucose of 39. Medics were called he was given dextrose in the field. He was transported to the ED where he has had recurrent hypoglycemia requiring dextrose infusion. He lives with his , and a son. His son usually helps out but was not available today. His daughter lives nearby. He denies any mix up with his medications. He notes that his 1st paracentesis was 1 week ago for 3 L. Studies were taken with no results reported to the patient. Pathology is reviewed today and is negative for malignant cells. The patient also has a history of diastolic heart failure, chronic kidney disease, aortic stenosis, remote sick sinus syndrome with a dual-chamber pacemaker placed in 2020, and persistent atrial fibrillation. He is on chronic warfarin. Other than his new recurrent ascites, he denies any recent changes in how he has been feeling. He does have mild edema of the legs. He denies any abdominal pain other than the discomfort of the tense ascites. He denies shortness of breath other than some displacement orthopnea. He also denies any chest pain, palpitations, recent fevers or chills. He denies a history of regular alcohol use. An abdominal CT scan indicate cirrhosis, with a single phase contrast evaluation for detection of HCC. No masses identified. His portal vein was patent. He would moderate volume ascites as well as a right inguinal hernia and diffuse esophageal wall thickening. Abdominal ultrasound from May of 2023 reveals ascites in the hernia. In looking back to a CT scan from April 2020, the patient had cirrhosis of the liver identified at that time. Discharge Providers Provider Date of admission: 07/01/23 18:12 Discharge Date: 07/02/23 Primary care physician: BECKIE Baires Discharge provider: Devon Carter DO Summary Hospital Course Discharge Diagnosis: 1. Persistent hypoglycemia in a diabetic who takes insulin as well as glipizide and Jardiance. Present on admission and active. 2. Acute metabolic encephalopathy secondary to hypoglycemia, present on admission and active. 3. Recurrent gross ascites secondary to cirrhosis which is chronic and of unknown etiology, present on admission and active. 4. Essential hypertension, present on admission and active. 5. Permanent atrial fibrillation, present on admission and active. 6. Chronic anticoagulation with warfarin, present on admission and active. 7. Aortic stenosis, present on admission and active. Hospital Course: This is an 83 year old male who was admitted with persistent hypoglycemia. After review of his medications it was noted that he had recently been having low blood sugars after starting Jardiance. He improved with cessation of glipizide and glucose was relatively controlled without insulin here in the hospital. He did have ascites but was not indicated for repeat paracentesis urgently. INR was elevated likely due to hepatic congestion and warfarin therapy. Outpatient follow up with coumadin clinic is recommended. He was started on furosemide to try to diurese some fluid off, unable to do aggressively due to borderline low BP. Recommend increasing diuresis as an outpatient to help with ascites with primary care and GI if following. For his hypoglycemia, he was recommended to stop glipize and his NPH for now, continue on Jardiance after risk/benefit discussion (cardiac benefits of Jardiance). If glucose is >200 at home he was recommended to restart NPH at 5U BID initially with gradual titration up depending on blood sugar levels. Outpatient follow up with primary care is recommeded for continued diabetes management. Time Spent with Patient Time spent: Greater than 30 minutes Exam Vital Signs (past 8 hours): - 07/02/23 07:00 07/02/23 08:00 Temperature 98.1 F Pulse Rate 60 Respiratory Rate 16 Blood Pressure 126/67 Pulse Oximetry 100 Oxygen Delivery Method Room Air Oxygen Delivery Method Room Air Oxygen Flow Rate 0 Narrative Exam Narrative: Alert and oriented x3 Relatively calm. He appears chronically ill with gross ascites and some peripheral atrophy. Normocephalic skull. Anicteric sclera, EOMI, symmetric pupils. Unremarkable oropharynx without droop. Mucosa unremarkable. Neck supple, normal JVP, no adenopathy. Lungs are clear, normal rate and effort. Heart is irregular. No murmur. Abdomen is tense with ascites but nontender. Dull to percussion. Extremities with 1+ edema. Skin is notable for excoriations but no overt rash. Joints are not swollen or deformed. Abnormal affect and judgment. Objective Labs 07/02/23 05:05 07/02/23 05:05 Labs: Laboratory Results - last 24 hr 07/01/23 07/01/23 07/01/23 14:57 16:15 16:25 WBC 4.8 RBC 4.71 Hgb 14.7 Hct 44.5 MCV 94.4 MCH 31.2 MCHC 33.0 RDW 16.7 H Plt Count 166 Neut % (Auto) 64.1 Lymph % (Auto) 21.0 L [place] % (Auto) 11.1 Eos % (Auto) 2.9 Baso % (Auto) 0.9 Neut # (Auto) 3100 Lymph # (Auto) 1000 L [place] # (Auto) 500 Eos # (Auto) 100 Baso # (Auto) 0 PT 36.8 H INR 3.2 H Sodium 134 L Potassium 3.6 Chloride 105 Carbon Dioxide 23 BUN 26 H Creatinine 1.69 H Estimated GFR 40 L BUN/Creatinine Ratio 15.4 Glucose 116 H Calcium 8.4 Total Bilirubin 1.0 AST 56 ALT 28 Alkaline Phosphatase 143 H Total Protein 6.0 L Albumin 2.8 L Globulin 3.2 Albumin/Globulin Ratio 0.9 L Urine Color Yellow Urine Appearance Clear Urine pH 5.0 Ur Specific [place] 1.025 Urine Protein Negative Urine Glucose (UA) 2+ H Urine Ketones Negative Urine Occult Blood Trace-intact Urine Nitrate Negative Urine Bilirubin Negative Urine Urobilinogen 0.2 Ur Leukocyte Esterase Negative Urine RBC 0-1/hpf Urine WBC 1-5/hpf Ur Squamous Epith Cells 0-1 /hpf Urine Bacteria None seen Hyaline Casts 1-5/lpf Ur Culture Indicated? Cult not indicated Vol Urine Centrifuged 10ml (spun) 07/02/23 05:05 WBC 5.6 RBC 4.42 L Hgb 13.8 Hct 40.4 L MCV 91.3 D MCH 31.1 MCHC 34.1 RDW 16.4 H Plt Count 159 Neut % (Auto) 58.2 Lymph % (Auto) 25.6 [place] % (Auto) 11.2 Eos % (Auto) 3.8 Baso % (Auto) 1.2 Neut # (Auto) 3200 Lymph # (Auto) 1400 [place] # (Auto) 600 Eos # (Auto) 200 Baso # (Auto) 100 PT 45.9 H D INR 3.9 H Sodium 135 L Potassium 3.9 Chloride 106 Carbon Dioxide 23 BUN 25 H Creatinine 1.66 H Estimated GFR 41 L BUN/Creatinine Ratio 15.1 Glucose 136 H Calcium 8.2 L Total Bilirubin 1.0 AST 54 ALT 26 Alkaline Phosphatase 156 H Total Protein 5.4 L Albumin 2.4 L Globulin 3.0 Albumin/Globulin Ratio 0.8 L Urine Color Urine Appearance Urine pH Ur Specific [place] Urine Protein Urine Glucose (UA) Urine Ketones Urine Occult Blood Urine Nitrate Urine Bilirubin Urine Urobilinogen Ur Leukocyte Esterase Urine RBC Urine WBC Ur Squamous Epith Cells Urine Bacteria Hyaline Casts Ur Culture Indicated? Vol Urine Centrifuged [facility] Medical History Hypertension Diabetes Social History household members: friend(s) Smoking Status: Never smoker alcohol intake: current Discharge Plan Discharge Plan Patient Disposition: Home Provider Discharge Comment: You were admitted to the hospital with low blood sugar, likely due to over-medication. Stop glipizide and insulin for now, continue Jardiance. If blood sugars consistently >200 at home, okay to resume NPH at 5 U twice a day, and can increase every 2-3 days. Follow up with PCP next week as already scheduled. Diuretic medication was started to help with fluid removal. Dr. Guillaume to see you in clinic. Discharge orders & Medications Prescriptions: New furosemide 20 mg tablet 10 mg PO DAILY 60 Days Qty: 30 0RF Continued pravastatin 40 mg Tablet 40 mg PO QPM Jardiance 10 mg Tablet 10 mg PO DAILY Discontinued glipizide 10 mg Tablet 10 mg PO DAILY Humulin N NPH U-100 Insulin 100 unit/mL Suspension 30 units subcut BID No Action coenzyme Q10 100 mg capsule 300 mg PO DAILY glipizide 10 mg tablet 10 mg PO DAILY Humulin N NPH U-100 Insulin 100 unit/mL suspension 30 unit SUBCUT BID metoprolol succinate 25 mg tablet extended release 24 hr 12.5 mg PO BID warfarin 1 mg tablet 1 mg PO DAILY Rx Instructions: Take with 5mg tablet daily. warfarin 5 mg tablet 5 mg PO DAILY Rx Instructions: Take with 1mg tablet. Follow up/Referrals: Marilee Montero ARNP [Primary Care Provider] - Diet/Activity/Treatments Diet: Diet as Tolerated and Carb-consistent/Diabetic Activity: As tolerated Visit Report/Discharge Packet Instructions: Furosemide Stand Alone Forms: Patient Portal/API Discharge Data Primary Care Provider: Marilee Montero
== END 2023-07-02 12:47 | disposition home or self-care (01) | DRG 637 ==
LOC: ED 14:36 → AC 18:15
PROVIDERS: Admitting Provider Hospitalist; Emergency Provider Emergency Medicine; PCP Registered Nurse; Visit Provider Hospitalist
DX: E11.649 Type 2 diabetes mellitus with hypoglycemia without coma (principal); G93.41 Metabolic encephalopathy; I48.21 Permanent atrial fibrillation; E11.22 Type 2 diabetes mellitus with diabetic chronic kidney disease; I12.9 Hypertensive chronic kidney disease with stage 1 through stage 4 chronic kidney disease, or unspecified chronic kidney disease; K74.60 Unspecified cirrhosis of liver; N18.30 Chronic kidney disease, stage 3 unspecified; Z95.0 Presence of cardiac pacemaker; Z79.01 Long term (current) use of anticoagulants; Z79.4 Long term (current) use of insulin; Z79.84 Long term (current) use of oral hypoglycemic drugs
CPT/HCPCS: 36415; 80053; 81001; 82962; 85025; 85610; 96365; 99284; 99291; G0378; J1644

== ENCOUNTER → 2023-07-20 17:26 | Outpatient (CLI) | payer OTHER, SELFPAY ==
[2023-07-01 20:11] VITALS: BMI 28.1
[2023-07-20 17:55] LABS: INR 3.5 (0.9-1.3); Prothrombin Time 40.2 SECONDS (9.4-12.5)
== END ==
PROVIDERS: PCP Registered Nurse; Referring Provider Registered Nurse; Visit Provider Registered Nurse
DX: R18.8 Other ascites (principal)
CPT/HCPCS: 36415; 85610

== ENCOUNTER → 2023-07-21 14:46 | Outpatient (ROUT) | payer OTHER, SELFPAY ==
[2023-07-01 20:11] VITALS: BMI 28.1
[2023-07-21 15:08] LABS: INR 2.3 (0.9-1.3); Prothrombin Time 27.1 SECONDS (9.4-12.5)
== END ==
PROVIDERS: PCP Registered Nurse; Visit Provider Registered Nurse
DX: K74.60 Unspecified cirrhosis of liver (principal); R18.8 Other ascites; I48.19 Other persistent atrial fibrillation
CPT/HCPCS: 85610

== ENCOUNTER → 2023-07-23 15:07 | Outpatient (CLI) | payer OTHER, SELFPAY ==
[2023-07-01 20:11] VITALS: BMI 28.1
--- NOTE | 2023-07-23 | DI.US.S_ITS ---
PROCEDURE: US PARACENTESIS INDICATIONS: Other ascites -THERAPEUTIC TECHNIQUE: The indications, alternatives, benefits, risks, and complications of the procedure were explained to the patient. Written informed consent was obtained and placed in the chart. The abdomen and pelvis were examined sonographically, and an appropriate site was chosen for paracentesis. The skin was prepared and draped in the usual sterile fashion, and 1% lidocaine was infiltrated from the skin down through the peritoneal surface. A 19-gauge catheter-covered needle was then introduced into the peritoneal space, the catheter was advanced and the needle was withdrawn, and thereafter peritoneal fluid was withdrawn. The catheter was then removed and a dressing was applied. The fluid was discarded if the clinician did not order diagnostic testing of the fluid. COMPARISON: [facility], ABDOMEN LIMITED, 05/15/2023, 13:56. [facility], US PARACENTESIS, 06/22/2023, 9:16. FINDINGS: Access site: Left lower quadrant Needle: One-Step centesis catheter with introducer needle. Fluid volume and description: 4950 ml; clear. Fluid sent for diagnostic testing: Not requested by referring physician. Medications: 1% lidocaine for local anaesthesia. Complications: None. IMPRESSION: Successful ultrasound-guided paracentesis. Dictated by: Silvia Cheng M.D. on 07/23/2023 at 16:40 Approved by: Silvia Cheng M.D. on 07/23/2023 at 16:41
== END ==
PROVIDERS: PCP Registered Nurse; Referring Provider Registered Nurse; Visit Provider Registered Nurse
DX: K74.60 Unspecified cirrhosis of liver (principal); R18.8 Other ascites; N18.32 Chronic kidney disease, stage 3b
CPT/HCPCS: 36415; 49083; 80053

== ENCOUNTER → 2023-07-23 16:42 | Outpatient (CLI) | payer OTHER, SELFPAY ==
[2023-07-01 20:11] VITALS: BMI 28.1
== END ==
PROVIDERS: PCP Registered Nurse; Referring Provider Registered Nurse; Visit Provider Registered Nurse
DX: N18.32 Chronic kidney disease, stage 3b (principal)
CPT/HCPCS: 36415; 80053

== ENCOUNTER → 2023-07-24 14:38 | Outpatient (CLI) | payer OTHER, SELFPAY ==
[2023-07-01 20:11] VITALS: BMI 28.1
[2023-07-24 16:02] LABS: Alanine Aminotransferase 31 IU/L (<50); Albumin Globulin Ratio 0.9 (1.0-2.8); Alkaline Phosphatase 190 U/L (38-126); Aspartate Aminotransferase 71 IU/L (17-59); BUN Creatinine Ratio 21.1 (6-22); Bilirubin Total 2.2 mg/dL (0.2-1.3); Blood Urea Nitrogen 36 mg/dL (9-20); Calcium 8.4 mg/dL (8.4-10.2); Carbon Dioxide 21 mmol/L (22-32); Chloride 102 mmol/L (98-107); Estimated Glomerular Filt Rate 39 mL/min (>60); Globulin 3.5 g/dL (1.7-4.1); Glucose 162 mg/dL (80-110); HEMOLYSIS 28 (0-50); Potassium 3.7 mmol/L (3.4-5.1); Sodium 133 mmol/L (137-145); Total Protein 6.5 g/dL (6.3-8.2)
== END ==
PROVIDERS: PCP Registered Nurse; Referring Provider Registered Nurse; Visit Provider Registered Nurse
DX: N18.32 Chronic kidney disease, stage 3b (principal)
CPT/HCPCS: 36415; 80053

== ENCOUNTER → 2023-07-28 14:00 | Outpatient (CLI) | payer OTHER, SELFPAY ==
[2023-07-01 20:11] VITALS: BMI 28.1
--- NOTE | 2023-07-28 14:06 | DI.US.S_ITS ---
PROCEDURE: US PARACENTESIS INDICATIONS: ASCITIES TECHNIQUE: The indications, alternatives, benefits, risks, and complications of the procedure were explained to the patient. Written informed consent was obtained and placed in the chart. The abdomen and pelvis were examined sonographically, and an appropriate site was chosen for paracentesis. The skin was prepared and draped in the usual sterile fashion, and 1% lidocaine was infiltrated from the skin down through the peritoneal surface. A 19-gauge catheter-covered needle was then introduced into the peritoneal space, the catheter was advanced and the needle was withdrawn, and thereafter peritoneal fluid was withdrawn. The catheter was then removed and a dressing was applied. The fluid was discarded if the clinician did not order diagnostic testing of the fluid. COMPARISON: [facility], CT, CT ABDOMEN PELVIS W CON, 06/17/2023, 13:53. [facility], US, US PARACENTESIS, 07/23/2023, 15:28. [facility], , US PARACENTESIS, 06/22/2023, 9:16. FINDINGS: Access site: Right lower quadrant Needle: One-Step centesis catheter with introducer needle. Fluid volume and description: 5000 mL semi clear Fluid sent for diagnostic testing: Not requested by referring physician. Medications: 1% lidocaine for local anaesthesia. Complications: None. IMPRESSION: Successful ultrasound-guided paracentesis. Dictated by: Silvia Cheng M.D. on 07/28/2023 at 15:27 Approved by: Silvia Cheng M.D. on 07/28/2023 at 15:27
== END ==
PROVIDERS: PCP Registered Nurse; Referring Provider Registered Nurse; Visit Provider Registered Nurse
DX: N18.32 Chronic kidney disease, stage 3b (principal); K74.60 Unspecified cirrhosis of liver; R18.8 Other ascites
CPT/HCPCS: 49083

== ENCOUNTER → 2023-07-29 12:05 | Outpatient (CLI) | payer OTHER, SELFPAY ==
[2023-07-01 20:11] VITALS: BMI 28.1
[2023-07-29 13:11] LABS: Alanine Aminotransferase 29 IU/L (<50); Albumin 2.7 g/dL (3.5-5.0); Albumin Globulin Ratio 0.8 (1.0-2.8); Alkaline Phosphatase 238 U/L (38-126); Aspartate Aminotransferase 57 IU/L (17-59); BUN Creatinine Ratio 21.4 (6-22); Bilirubin Total 1.6 mg/dL (0.2-1.3); Blood Urea Nitrogen 39 mg/dL (9-20); Calcium 8.6 mg/dL (8.4-10.2); Carbon Dioxide 25 mmol/L (22-32); Chloride 97 mmol/L (98-107); Estimated Glomerular Filt Rate 37 mL/min (>60); Globulin 3.4 g/dL (1.7-4.1); Glucose 153 mg/dL (80-110); HEMOLYSIS < 15 (0-50); Potassium 3.6 mmol/L (3.4-5.1); Sodium 133 mmol/L (137-145); Total Protein 6.1 g/dL (6.3-8.2)
== END ==
PROVIDERS: PCP Registered Nurse; Referring Provider Registered Nurse; Visit Provider Registered Nurse
DX: N18.32 Chronic kidney disease, stage 3b (principal)
CPT/HCPCS: 36415; 80053

== ENCOUNTER → 2023-08-04 | Outpatient (CLI) | payer OTHER, SELFPAY ==
[2023-07-01 20:11] VITALS: BMI 28.1
--- NOTE | 2023-08-04 14:09 | DI.US.S_ITS ---
PROCEDURE: US PARACENTESIS INDICATIONS: Other ascites TECHNIQUE: The indications, alternatives, benefits, risks, and complications of the procedure were explained to the patient. Written informed consent was obtained and placed in the chart. The abdomen and pelvis were examined sonographically, and an appropriate site was chosen for paracentesis. The skin was prepared and draped in the usual sterile fashion, and 1% lidocaine was infiltrated from the skin down through the peritoneal surface. A 19-gauge catheter-covered needle was then introduced into the peritoneal space, the catheter was advanced and the needle was withdrawn, and thereafter peritoneal fluid was withdrawn. The catheter was then removed and a dressing was applied. The fluid was discarded if the clinician did not order diagnostic testing of the fluid. COMPARISON: [facility], PARACENTESIS, 07/28/2023, 14:35. FINDINGS: Access site: Right lower quadrant Needle: One-Step centesis catheter with introducer needle. Fluid volume and description: Clear yellow, 5 L Fluid sent for diagnostic testing: As ordered by requesting team Medications: 1% lidocaine for local anaesthesia. Complications: None. IMPRESSION: Successful ultrasound-guided paracentesis with removal of 5 L of clear yellow fluid from a right lower quadrant approach. Dictated by: Virgilio To M.D. ; received for interpretation on 08/24/2023 at 8:24 Approved by: Virgilio To M.D. on 08/24/2023 at 11:58
== END ==
PROVIDERS: PCP Registered Nurse; Referring Provider Registered Nurse; Visit Provider Registered Nurse
DX: K74.60 Unspecified cirrhosis of liver (principal); R18.8 Other ascites
CPT/HCPCS: 49083